=== PATIENT | male | born 1935 | race Caucasian/White ===

== ENCOUNTER 2016-12-11 09:59 | Emergency (ER) | payer MEDICARE, OTHER ==
[2016-01-14 12:23] VITALS: BMI 28.0
[~2016-12-11 09:59] MED LIST: BACTROBAN CREAM15 GM TOPICAL; BAYER CHEWABLE81 MG PO; CARDIZEM CD240 MG PO; FERROUS SULFAT325 MG PO; FORADIL12 MCG INH; FUROSEMIDE40 MG PO; GEMFIBROZIL600 MG PO; GLIPIZIDE10 MG PO; HYDRALAZINE HCL25 MG PO; JANUVIA100 MG PO; KEFLEX500 MG PO; KEPPRA500 MG PO; KLOR-CON 1010 MEQ PO; MAG-OXIDE400 MG PO; SINEMET CR 50-1 EACH PO; SPIRIVA18 MCG INH; TRILIPIX45 MG PO; VENTOLIN HFA18 GM INH; ZEBETA5 MG PO; ZOCOR20 MG PO
[2016-12-11 10:54] LABS: BASOPHILS 0.3 % (0-2); EOSINOPHILS 1.8 % (0-7); HEMATOCRIT 43.4 % (42.0-54.0); HEMOGLOBIN 14.2 g/dL (13.5-17.5); IMMATURE GRANULOCYTES 0.2 % (0-5); LYMPHOCYTES 15.3 % (15-50); MCH 32.3 pg (26.0-34.0); MCHC 32.7 g/dL (31.0-37.0); MCV 98.9 fL (80.0-100.0); MEAN PLATELET VOLUME 10.1 fL (7.4-10.4); MONOCYTES 9.3 % (2-11); NEUTROPHILS 73.1 % (40-80); PLATELET COUNT 181 10x3/uL (130-400); RBC 4.39 10x6/uL (4.20-6.10); RDW 14.3 % (11.5-14.5); WBC 9.4 10x3/uL (4.8-10.8)
[2016-12-11 11:05] LABS: ANION GAP 10.8 mmol/L (8-16); CALCIUM 9.2 mg/dL (8.5-10.1); CARBON DIOXIDE 31.4 mmol/L (21.0-32.0); CREATININE - SERUM 1.7 mg/dL (0.6-1.3); POTASSIUM - SERUM 4.2 mmol/L (3.5-5.1)
[2016-12-11 11:16] LABS: APTT 27.2 SECONDS (22.8-39.4); INR 0.97 (0.85-1.17); PROTIME 12.7 SECONDS (11.6-15.0)
[2016-12-11 11:17] LABS: D-DIMER-QUANTITATIVE 1.41 ug/mLFEU (0.20-0.54)
== END 2016-12-11 12:29 | disposition home or self-care (01) ==
LOC: D.ER 09:59
PROVIDERS: Emergency Medicine
DX: S60.465A Insect bite (nonvenomous) of left ring finger, initial encounter (principal); L08.9 Local infection of the skin and subcutaneous tissue, unspecified; W57.XXXA Bitten or stung by nonvenomous insect and other nonvenomous arthropods, initial encounter; Y93.89 Activity, other specified; Y92.89 Other specified places as the place of occurrence of the external cause; E11.9 Type 2 diabetes mellitus without complications; N18.9 Chronic kidney disease, unspecified; G20 Parkinson's disease; Z95.0 Presence of cardiac pacemaker; J44.9 Chronic obstructive pulmonary disease, unspecified; I50.9 Heart failure, unspecified

== ENCOUNTER 2017-07-02 08:01 | Inpatient (IN) | payer MEDICARE, OTHER ==
[~2017-07-02] VITALS: Ht 180.3 cm; Wt 83.2 kg
--- NOTE | ~2017-07-02 | OP ---
PATIENT NAME: GRAYSON AMOR MEDICAL RECORD: [id number] :33 LOCATION:[facility] D.[id number] ADMISSION DATE:07/02/17 SURGEON: LAITH STARKEY DO DATE OF OPERATION: 07/02/2017 DATE OF SURGERY: 07/02/2017 PROCEDURE PERFORMED: Left lindsay hip arthroplasty. PREOPERATIVE DIAGNOSIS: Left femoral neck fracture. POSTOPERATIVE DIAGNOSIS: Left femoral neck fracture. INDICATIONS: Mr. Amor is an 82-year-old male, who fell today onto his left side and could not ambulate afterwards. He had bruising over his left hip. X-rays taken that showed a femoral neck fracture. He had pain with hip log roll and we decided that lindsay hip would be the best for him as he has beginnings of Parkinson's. This was discussed with him and his family and he was consented for the procedure. SURGEON: Laith Starkey D.O. BLOOD LOSS: Approximately 100 mL. COMPLICATIONS: None. DESCRIPTION OF PROCEDURE: The patient was taken to the operative suite and laid in supine position, given general anesthetic and intubated. Once that was done, the boot was placed on the left lower extremity for the Medacta table and the patient was put over to the bed and then positioned with all bony prominences well padded. The left arm was brought over his chest and well padded. Once this was done, the left lower extremity was prepped and draped and a timeout was performed. Everyone was agreed to the correct side, site, and patient. The patient did receive a gram of Ancef preoperatively. After this was done, the incision we commenced just over the tensor fascia nesha and dissection was made down to the tensor fascia. Once the tensor fascia was divided, the fascia itself was taken anteriorly and the belly posteriorly and the Dilip Flores was used to do this. We then encountered the vessels of the ascending branch of the lateral femoral circumflex and the vessels were encountered and the Aquamantys was used on them to coagulate them and then they were tied off on either ends where we coagulated them and then they were divided. The hip femoral neck was then encountered. Hohmanns were placed around it and capsulotomy was performed and capsule was tagged and the Hohmanns were put inside the capsule around the femoral neck and the fracture was encountered at that time with some hematoma and the femoral neck cut was made distal to where the fracture was freshened up. Then, the head was removed as it felt it was not very sturdy. Head was removed and sized to be 51. After this was done, the femur was exposed with external rotation, extension, abduction and cookie cutter was used to lateralize a little and then the canal finder was used to find the canal started broaching up to a 4. We then took an x-ray and so we can go larger and a cookie cutter was used to get more lateral and we then went up to a 5. A #5 stem seemed to fit quite nicely. Then we trialled and found that the neck with the 51 head, standard offset was the best combination for the length of the hip. After this was done, the hip had been reduced and then pulled back out. We then put in a collared 5 stem and went down the collar right to the medial calcar region and then the OPERATIVE REPORT [id number] GRAYSON AMOR head was put on the bipolar head and the hip was reduced. X-rays were taken and seen to be in very good position. Then, the capsule was closed with a #2 Ethibond and the wound was thoroughly irrigated and then Janett was placed in the wound. The fascia over the tensor fascia nesha was then closed with 2 [id number] stitches and then a single running locking stitch was placed over the fascia with the same suture. Then, the rest of the Janett was unused. The skin was then closed with 2-0 Vicryl in an inverted interrupted fashion and then Prineo Dermabond glue was used on the skin, Adaptic, 4 x 4s and ABD were then placed over the hip and he was awakened and taken to recovery in stable condition. Blood loss approximately 150 mL. TRANSINT:[id number] Voice Confirmation ID: [id number] DOCUMENT ID: [id number] LAITH STARKEY DO at 0309 CC: [id number] DICTATION DATE: 07/02/172118 AIDS NURSE: 07/03/17 [address] [facility] [address] [place] [address]
[2017-07-02 09:22] LABS: BASOPHILS 0.1 % (0-2); EOSINOPHILS 0.3 % (0-7); HEMATOCRIT 39.2 % (42.0-54.0); HEMOGLOBIN 12.9 g/dL (13.5-17.5); IMMATURE GRANULOCYTES 0.3 % (0-5); LYMPHOCYTES 9.5 % (15-50); MCH 32.5 pg (26.0-34.0); MCHC 32.9 g/dL (31.0-37.0); MCV 98.7 fL (80.0-100.0); MEAN PLATELET VOLUME 10.2 fL (7.4-10.4); MONOCYTES 6.1 % (2-11); NEUTROPHILS 83.7 % (40-80); PLATELET COUNT 199 10x3/uL (130-400); RBC 3.97 10x6/uL (4.20-6.10); RDW 14.1 % (11.5-14.5); WBC 14.5 10x3/uL (4.8-10.8)
[2017-07-02 09:25] LABS: APTT 27.2 SECONDS (22.8-39.4); INR 1.07 (0.85-1.17); PROTIME 13.5 SECONDS (11.6-15.0)
[2017-07-02 09:31] LABS: ALBUMIN 4.1 g/dL (3.4-5.0); ANION GAP 16.8 mmol/L (8-16); BILIRUBIN - TOTAL 0.4 mg/dL (0.2-1.3); CARBON DIOXIDE 24.6 mmol/L (21.0-32.0); CREATININE - SERUM 2.4 mg/dL (0.6-1.3); POTASSIUM - SERUM 4.4 mmol/L (3.5-5.1); PROTEIN - SERUM 7.5 g/dL (6.4-8.2)
[2017-07-02 14:11] VITALS: BP 145/102; BMI 27.2
[2017-07-02 15:01] VITALS: BP 152/58
[2017-07-02 23:00] VITALS: BP 122/57
[2017-07-02 23:15] VITALS: BP 117/71
[2017-07-02 23:30] VITALS: BP 109/64
[2017-07-02 23:45] VITALS: BP 113/61
[2017-07-03] VITALS (16 sets, daily range): BP systolic 97–152; BP diastolic 51–92; Ht 180.3 cm; Wt 83.2 kg
[2017-07-03 04:09] LABS: BASOPHILS 1.5 % (0-2); EOSINOPHILS 1.5 % (0-7); HEMATOCRIT 32.5 % (42.0-54.0); HEMOGLOBIN 10.3 g/dL (13.5-17.5); IMMATURE GRANULOCYTES 0.1 % (0-5); LYMPHOCYTES 9.2 % (15-50); MCH 32.4 pg (26.0-34.0); MCHC 31.7 g/dL (31.0-37.0); MCV 102.2 fL (80.0-100.0); MEAN PLATELET VOLUME 10.7 fL (7.4-10.4); MONOCYTES 8.2 % (2-11); NEUTROPHILS 79.5 % (40-80); PLATELET COUNT 165 10x3/uL (130-400); RBC 3.18 10x6/uL (4.20-6.10); RDW 14.5 % (11.5-14.5); WBC 8.7 10x3/uL (4.8-10.8)
[2017-07-03 04:26] LABS: ALBUMIN 3.2 g/dL (3.4-5.0); BILIRUBIN - TOTAL 0.42 mg/dL (0.2-1.3); CALCIUM 8.2 mg/dL (8.5-10.1); CARBON DIOXIDE 28.9 mmol/L (21.0-32.0); CREATININE - SERUM 2.5 mg/dL (0.6-1.3); PROTEIN - SERUM 6.1 g/dL (6.4-8.2)
[2017-07-03 04:37] LABS: ANION GAP 10.9 mmol/L (8-16); POTASSIUM - SERUM 5.8 mmol/L (3.5-5.1)
[2017-07-04] VITALS (9 sets, daily range): BP systolic 98–152; BP diastolic 55–78
[2017-07-04 05:08] LABS: BASOPHILS 0.4 % (0-2); EOSINOPHILS 3.5 % (0-7); HEMATOCRIT 30.5 % (42.0-54.0); HEMOGLOBIN 9.6 g/dL (13.5-17.5); IMMATURE GRANULOCYTES 0.2 % (0-5); LYMPHOCYTES 24.4 % (15-50); MCHC 31.5 g/dL (31.0-37.0); MCV 101.7 fL (80.0-100.0); MEAN PLATELET VOLUME 10.4 fL (7.4-10.4); NEUTROPHILS 60.5 % (40-80); PLATELET COUNT 149 10x3/uL (130-400); RDW 14.5 % (11.5-14.5)
[2017-07-04 05:16] LABS: WBC 5.7 10x3/uL (4.8-10.8)
[2017-07-04 05:25] LABS: ALBUMIN 3.1 g/dL (3.4-5.0); ANION GAP 10.3 mmol/L (8-16); BILIRUBIN - TOTAL 0.3 mg/dL (0.2-1.3); CALCIUM 8.2 mg/dL (8.5-10.1); CARBON DIOXIDE 27.1 mmol/L (21.0-32.0); CREATININE - SERUM 2.3 mg/dL (0.6-1.3); PROTEIN - SERUM 6.2 g/dL (6.4-8.2)
[2017-07-04 05:36] LABS: POTASSIUM - SERUM 4.4 mmol/L (3.5-5.1)
[2017-07-05 03:00] VITALS: BP 182/82
[2017-07-05 04:10] LABS: BASOPHILS 0.2 % (0-2); EOSINOPHILS 6.5 % (0-7); HEMATOCRIT 28.5 % (42.0-54.0); HEMOGLOBIN 9.2 g/dL (13.5-17.5); IMMATURE GRANULOCYTES 0.2 % (0-5); LYMPHOCYTES 15.8 % (15-50); MCH 32.2 pg (26.0-34.0); MCHC 32.3 g/dL (31.0-37.0); MONOCYTES 12.6 % (2-11); NEUTROPHILS 64.7 % (40-80); PLATELET COUNT 150 10x3/uL (130-400); RBC 2.86 10x6/uL (4.20-6.10)
[2017-07-05 04:11] LABS: MCV 99.7 fL (80.0-100.0)
[2017-07-05 04:16] LABS: ANION GAP 12.2 mmol/L (8-16); BILIRUBIN - TOTAL 0.4 mg/dL (0.2-1.3); CALCIUM 8.5 mg/dL (8.5-10.1); CARBON DIOXIDE 27.7 mmol/L (21.0-32.0); POTASSIUM - SERUM 3.9 mmol/L (3.5-5.1); PROTEIN - SERUM 6.3 g/dL (6.4-8.2)
[2017-07-05 04:18] LABS: CREATININE - SERUM 1.7 mg/dL (0.6-1.3)
[2017-07-05 12:55] VITALS: BP 177/85
[2017-07-05] MEDS ORDERED: VENTOLIN HFA18 GM INH (15:09)
[2017-07-05] MEDS ORDERED: HYDRALAZINE HCL25 MG PO (15:11)
[2017-07-05] MEDS ORDERED: BACTROBAN CREAM15 GM TOPICAL (15:12)
== END 2017-07-05 14:36 | DRG 470 ==
LOC: D.ER 08:01 → D.ICU 12:38 → D.MS 12:38 → D.ICU 22:54
PROVIDERS: Emergency Medicine
PROC: 0SRS0JZ Replacement of Left Hip Joint, Femoral Surface with Synthetic Substitute, Open Approach (ICD-10-PCS; 2017-07-02)
PROC: 0T9B70Z Drainage of Bladder with Drainage Device, Via Natural or Artificial Opening (ICD-10-PCS; principal; 2017-07-03)
DX: S72.002A Fracture of unspecified part of neck of left femur, initial encounter for closed fracture (principal); I13.0 Hypertensive heart and chronic kidney disease with heart failure and stage 1 through stage 4 chronic kidney disease, or unspecified chronic kidney disease; S32.019A Unspecified fracture of first lumbar vertebra, initial encounter for closed fracture; D62 Acute posthemorrhagic anemia; W19.XXXA Unspecified fall, initial encounter; G20 Parkinson's disease; I48.2 Chronic atrial fibrillation; I25.10 Atherosclerotic heart disease of native coronary artery without angina pectoris; E11.65 Type 2 diabetes mellitus with hyperglycemia; E11.22 Type 2 diabetes mellitus with diabetic chronic kidney disease; N18.9 Chronic kidney disease, unspecified; I50.9 Heart failure, unspecified; G47.33 Obstructive sleep apnea (adult) (pediatric); Z95.0 Presence of cardiac pacemaker; Z95.1 Presence of aortocoronary bypass graft; Z86.73 Personal history of transient ischemic attack (TIA), and cerebral infarction without residual deficits; Z87.891 Personal history of nicotine dependence; E87.5 Hyperkalemia

== ENCOUNTER 2017-07-05 13:53 | Inpatient (IN) | payer MEDICARE, OTHER ==
[~2017-07-05] VITALS: Ht 180.3 cm; Wt 83.5 kg
--- NOTE | 2017-07-05 15:00 | NUR ---
RECIEVED IN ROOM/BED.LEFT HIP FX.INCISION WITH DRSG C/D/I.BRUISING NOTED TO OUTER LT THIGH.POS UP IN BED.AYDEN HOSE ON LLE.PILLOW PLACED BETWEEN LEGS DUE TO CROSSING LEGS OVER.CL IN REACH.BED ALARM ON.
[2017-07-05] MEDS ORDERED: VENTOLIN HFA18 GM INH (15:09)
[2017-07-05] MEDS ORDERED: HYDRALAZINE HCL25 MG PO (15:11)
[2017-07-05] MEDS ORDERED: BACTROBAN CREAM15 GM TOPICAL (15:12)
[2017-07-05 16:44] VITALS: BP 177/77; BMI 25.7
--- NOTE | 2017-07-05 17:44 | NUR ---
PT RESTING IN BED WITH EYES OPEN CALL LIGHT IN REACH NO PROBLEMS WILL MONITER
--- NOTE | 2017-07-05 19:30 | NUR ---
PATIENT ATTEMPTING OOB. REPOSITIONED HIM WITH ASSIST FROM ОЛЬГА JONES. RESET TAMAR BED ALARM AND INTERNAL BED ALARM. REMINDED HIM HE IS NOT TO ATTEMPT UP WITHOUT ASSIST. PATIENT IS ORIENTED TO SELF ONLY. SR UP X3 WITH WATER AND CALL LIGHT IN REACH. LANDRY CATH PATENT TO BSD BAG.
--- NOTE | 2017-07-05 20:15 | NUR ---
PATIENT IN BED. WAS PLACED ON BEDPAN TO HAVE A BM. TRACE BLACK UNFORMED BM NOTED ON PINK BEDPAD.
[2017-07-05 22:10] VITALS: BP 183/77
--- NOTE | 2017-07-05 22:10 | NUR ---
ASSESMENT AND HS MEDS COMPLETE. ONLY TRACE BM RESULTED FROM EARLIER STINT ON BEDPAN. PATIENT WAS AGAIN PLACED ON BEDPAN PER HIS REQUEST.
--- NOTE | 2017-07-05 23:50 | NUR ---
PATIENT REMAINS AWAKE IN BED, COVERS OFF ASKED HIM IF HE IS COLD AND HE DENIES IT.
--- NOTE | 2017-07-06 01:55 | NUR ---
PATIENT AWAKE, LYING IN BED WITH COVERS OFF. RE-SPREAD HIS COVERS WHEN HE ADMITTED HE IS COLD NOW. SAID, "I WISH AMERICANS COULD BE LIKE YOU." IN INFER THAT HE MEANS HE IS SATISFIED WITH MY CARE OPPOSED TO THAT HE THINKS I'M NOT A [place] CITIZEN. WHEN I ASKED HIM TO CLARIFY, HE COULD NOT EXPLAIN HIMSELF.
--- NOTE | 2017-07-06 04:35 | NUR ---
RESTING QUIETLY IN BED, EYES CLOSED. EMPTIED 2225ML CLEAR LIGHT YELLOW URINE FROM LANDRY CATHETER.
--- NOTE | 2017-07-06 06:30 | NUR ---
FSBS 88. GAVE PATIENT 4 OZS APPLE JUICE. RPT PRESENT CONDUCTING INITIAL P/T EVALUATION. CLEANSED AND CHANGED PATIENT FROM SMALL BLACK LIQUID BM INCONTINENCE BEFORE P/T CONTINUED PATIENT'S EVAL.
[2017-07-06 06:51] LABS: HEMOGLOBIN 9.3 g/dL (13.5-17.5); LYMPHOCYTES 23.1 % (15-50); MCH 32.7 pg (26.0-34.0); MCHC 34.4 g/dL (31.0-37.0); MEAN PLATELET VOLUME 9.4 fL (7.4-10.4); NEUTROPHILS 61.6 % (40-80); PLATELET COUNT 153 10x3/uL (130-400); RBC 2.84 10x6/uL (4.20-6.10); RDW 13.3 % (11.5-14.5); WBC 5.1 10x3/uL (4.8-10.8)
[2017-07-06 06:58] LABS: MCV 95.1 fL (80.0-100.0)
[2017-07-06 07:13] LABS: ANION GAP 15.7 mmol/L (8-16); CALCIUM 8.4 mg/dL (8.5-10.1); POTASSIUM - SERUM 3.7 mmol/L (3.5-5.1)
[2017-07-06 07:14] LABS: CREATININE - SERUM 1.2 mg/dL (0.6-1.3)
--- NOTE | 2017-07-06 08:00 | NUR ---
SITTING UP IN BED EATING BREAKFAST. IS CONFUSED BUT COOPERATIVE. BRUISES NOTED TO LEFT SIDE AND HIP. OCCLUSIVE DSG NOTED TO LEFT HIP AREA. PEDAL PULSES NOTED X2.
[2017-07-06 08:33] VITALS: BP 152/67
--- NOTE | 2017-07-06 14:18 | NUR ---
RESTING QUIETLY IN BED. FAMILY VISITED EARLIER AND PT INTERACTED WTIH THEM.
--- NOTE | 2017-07-06 19:16 | NUR ---
SHIFT REPORT COMPLETED FROM DAY SHIFT NURSE.
--- NOTE | 2017-07-06 20:50 | NUR ---
FAMILY MEMBERS TALK TO PT AT ROOM.
[2017-07-06 22:58] VITALS: BP 137/61
--- NOTE | 2017-07-06 23:35 | NUR ---
REST QUIETLY IN BED, BED LOW, CALL LIGHT IN REACH.
--- NOTE | 2017-07-07 02:44 | NUR ---
PT RESTING IN BED READING A BOOK. NO COMPLAINT VOICED.
--- NOTE | 2017-07-07 06:05 | NUR ---
PT RESTING IN BED WITH EYES OPEN. DENIES ANY NEEDS. TOLERATED AM MEDS WITHOUT DIFFICULTY.
[2017-07-07 08:42] VITALS: BP 111/48
[2017-07-07 10:08] VITALS: Ht 180.3 cm; Wt 83.5 kg
--- NOTE | 2017-07-07 14:09 | NUR ---
THIS AM PATIENT STATED HE WANTED TO . NOTIFIED CHARGE NURSE JUSTIN. SPOKE WITH PATIENT AND ASKED HIM IF HE WANTED TO . HE SAID YES. I ASKED HIM IF HE HAD A PLAN TO KILL HIMSELF AND HE SAID NO. ROVERTO SPOKE WITH HIS ADUGHTER AND SHE SAID THIS IS NOTHING NEW WITH HIM AND WAS NOT SUPRISED HE WAS SAYING THIS. AFTER TALKING WITH HIM HE STATES HE DOES NOT PLAN TO HARM HIMSELF. HE ALSO MAKE AN INAPPROPRIATE COMMENT OF A SEXUAL NATURE.I DID NOT REPLY TO THIS COMMENT AND INSTEAD JUST SAID- CALL US IF YOU NEED ANYTHING.
--- NOTE | 2017-07-07 14:45 | NUR ---
PATIENT PULLED HIS R ARM SALINE LOCK OUT. CATH WAS INTACT. NO BLEEDING NOTED.
--- NOTE | 2017-07-07 15:45 | NUR ---
DAUGHTER VISITING PATIENT. PATIENT SPEECH BECAME GARBLED. HAD PATIENT TRY TO SMILE, TOUCH NOSE, MEAL MILLER HANDS, REPEAT SENTENCE. HE COULD NOT DO ANY OF THESE OR FOLLOW COMMANDS. VS WERE BP 124/84 HR 68 O2 SAT. 97%. CALLED DR. EPSTEIN AND MESSAGE LEFT OF CHANGE IN PATIENT STATUS. CT OF HEAD ORDERED. BLOOD GLUCOSE WAS 40 WHEN CHECKED. GLUCAGON WAS GIVEN IN ER. SL PLACED IN R AC IN ER.
--- NOTE | 2017-07-07 17:39 | NUR ---
PT RETURNING TO REHAB. PT FSBS LOW. SPOKE WITH SIDRA HARTKNURLING MACHINE TENDER. WILL RECHECK FSBS Q2 UNTIL FSBS GREATER THAN 100 X2 THEN WILL CHECK Q4.
--- NOTE | 2017-07-07 17:42 | NUR ---
ER CALLED WITH ORDERS FROM DR HENAO TO RUN D5NS @75 UNTIL FSBS REMAINS ABOVE 100 X2.
--- NOTE | 2017-07-07 19:20 | NUR ---
BEDSIDE SHIFT REPORT COMPLETE. BLOOD SUGAR CURRENTLY 219. IVF D5 1/2NS CONTINUES @ 75ML/HR PER PUMP VIA LEFT AC S/L. WILL RECHECK FSBS IN 2 HRS.
[2017-07-07 21:35] VITALS: BP 119/48
--- NOTE | 2017-07-07 21:35 | NUR ---
ASSISTED PATIENT UP TO BR DUE TO STOOL INCONTINENCE IN BED. HAD A FURTHER LARGE FORMED, BLACK BM (PATIENT TAKING FESO4) ON COMMODE. CLEANSED AND CHANGED HIM AND APPLIED FRESH PULL-UP. CHANGED ALL LINENS AND RETURNED PATIENT TO BED. THEN COMPLETED ASSESSMENT AND HS MEDS. HELD HYDRALAZINE DUE TO LOW DBP OF 119/48. FSBS 130. DISCONTINUED IV D5 1/2NS. GAVE PATIENT SNACK OF 8 OZS 2% MILK AND 3 CHUCKIE CRAX SQUARES. WILL RECHECK FSBS @ 0200 ON Q4H SCHEDULE PER ORDER OF DR. HENAO. PATIENT DENIES NEEDS. REMAINS ORIENTED X1 ONLY.
--- NOTE | 2017-07-07 22:15 | NUR ---
REMAINS AWAKE IN BED. SAYS HE IS STILL WORKING ON HIS SNACK. HAS EATEN HIS GRAHAMS. A SMALL AMOUNT OF MILK REMAINS.
--- NOTE | 2017-07-08 | NUR ---
PATIENT AWAKE. DENIES NEEDS. REMAINS CONFUSED.
--- NOTE | 2017-07-08 02:11 | NUR ---
PT RESTING IN BED WIDE AWAKE. ALERT TO SELF, BUT CONFUSED TO TIME, PLACE AND SITUATION. VOICED COMPLAINT OF LEFT HIP PAIN, BUT COULD NOT TELL ME A PAIN LEVEL. MEDICATED WITH NORCO PER SEP. PT ASKING FOR HIS MOTHER AT THIS TIME. WILL MONITOR CLOSELY.
--- NOTE | 2017-07-08 03:51 | NUR ---
FSBS IS 60. PT GIVEN 12 OUNCES OF ORANGE JUICE WITH 8 PACKETS OF SUGAR IN IT.
--- NOTE | 2017-07-08 04:56 | NUR ---
FSBS IS 126 AT THIS TIME.
--- NOTE | 2017-07-08 06:14 | NUR ---
PT RESTING IN BED WITH EYES OPEN. NO NEEDS VOICED.
[2017-07-08 07:30] LABS: BASOPHILS 0.2 % (0-2); EOSINOPHILS 4.7 % (0-7); HEMATOCRIT 28.9 % (42.0-54.0); HEMOGLOBIN 9.1 g/dL (13.5-17.5); IMMATURE GRANULOCYTES 0.5 % (0-5); LYMPHOCYTES 20.3 % (15-50); MCH 31.5 pg (26.0-34.0); MCHC 31.5 g/dL (31.0-37.0); MEAN PLATELET VOLUME 9.3 fL (7.4-10.4); NEUTROPHILS 61.3 % (40-80); RBC 2.89 10x6/uL (4.20-6.10); RDW 14.4 % (11.5-14.5); WBC 6.6 10x3/uL (4.8-10.8)
[2017-07-08 07:33] LABS: PLATELET COUNT 216 10x3/uL (130-400)
[2017-07-08 07:45] LABS: ANION GAP 12.9 mmol/L (8-16); CALCIUM 8.7 mg/dL (8.5-10.1); CARBON DIOXIDE 27.9 mmol/L (21.0-32.0); CREATININE - SERUM 1.5 mg/dL (0.6-1.3); POTASSIUM - SERUM 3.8 mmol/L (3.5-5.1)
--- NOTE | 2017-07-08 08:00 | NUR ---
SHIFT ASSMT COMPLETED.PLEASANTLY CONFUSED.INCISION LEFT HIP OPEN TO AIR.LARGE AMT OF BRUISING NOTED.ALARM ON.CL IN REACH.
[2017-07-08 09:54] VITALS: BP 144/43
--- NOTE | 2017-07-08 12:00 | NUR ---
POS UP IN BED FOR LUNCH;ENCOURAGED TO EAT.REQUIRED FEEDING AT FIRST.FSBS 139.
--- NOTE | 2017-07-08 14:00 | NUR ---
FAMILY HERE TO SEE.WORRIED OVER COULD EVENTS BE HAPPENING THEY DID THE OTHER DAY.RE-EVALUATED.PT SLEEPING.EASILY TO WAKE UP BUT DOZES BACK OFF TO SLEEP.FSBS 125.BP 125/44;THIS AM WAS 144/43.PULSE 62.RESP EASY AND REGULAR.FC UNCLAMPED AND DRAINED 110ML.URINE CLEAL.FC RECLAMPED.
--- NOTE | 2017-07-08 16:00 | NUR ---
SLEEPING RESP EASY.BLADDER TRAINING.
--- NOTE | 2017-07-08 19:17 | NUR ---
RECIEVED UP IN BED WITH EYES OPEN AND FAMILY AT BEDSIDE. PLEASANT AND CONFUSED. ORIENTED TO PERSON ONLY. DENIES ANY NEEDS AT THIS TIME. NO C/O PAIN. HOB ELEVATED AND LFA SALINE LOCK. CHECKED FOR PATENCY. LARGE BRUISE TO LEFT ARM AND LEFT SIDE OF HEADLEFT HIP SURGICAL INCISION OPEN TO AIR. REPORTED PT PULLED DRESSING OFF HIMSELF. NO REDNESS OR SWELLING TO SITE. BLADDER TRAINING IN PROGRESS. CALL LIGHT AND OVERBED TABLE IN REACH.
[2017-07-08 21:42] VITALS: BP 140/57
--- NOTE | 2017-07-08 23:00 | NUR ---
RESTING IN BED WITH EYES CLOSED. NO S/S OF DISTRESS OBSERVED. CALL LIGHT IN REACH. CONT BLADDER TRTAINING.
--- NOTE | 2017-07-09 03:21 | NUR ---
UP IN BED WITH EYES OPEN AND TV ON. EATING CHUCKIE CRACKERS AND MILK. PLEASANTLY CONFUSED. CONTINUE BLADDER TRAINING. IV TO LFA WITH DRESSING INTACT. CALL LIGHT AND OVERBED TABLE IN REACH.
--- NOTE | 2017-07-09 09:25 | NUR ---
FED BREAKFAST. EATS GOOD, BUT NEEDS CUEING AND ENCOURAGED TO EAT.(COULD FEED HIMSELF BUT FED HIM TO GET HIM TO EAT). WILL CONTINUE TO ENCOURAGE HIM TO EAT AND TO FEED HIMSELF.
[2017-07-09 10:30] VITALS: BP 154/59
--- NOTE | 2017-07-09 12:13 | NUR ---
Nutrition Follow Up: Pt was receiving pt care at the time of RD visit. Per nursing note pt is eating well but does require cueing and encouragement to eat. Pt is eating 50% meal avg on an ADA diet. +BM 07/07/17. Labs reviewed. Meds noted including Lasix. Rec continue current diet. RD following.
--- NOTE | 2017-07-09 15:24 | NUR ---
PATIENT ADMITTED TO REHAB FROM ACUTE FLOOR. DR. KIM IS PATIENT PCP, HE IS A CLIENT OF [facility] AT HOME. DME AT HOME: NEBULIZER, ROLLING WALKER AND A SHOWER CHAIR. WILL CONTINUE TO FOLLOW WITH PATIENT AND WILL ASSIST WITH DICHARGE NEEDS.
--- NOTE | 2017-07-09 17:27 | NUR ---
VOIDING WO DIFFICULTY SINCE LANDRY WAS REMOVED THIS AM. INCONT OF BOWEL AND BLADDER. ACCIDENT OF BM X1 ON CLOTHING AND LINENS. STAFF CHANGED LINENS AND BATHED PATIENT. ACCIDENT OF URINE X2 ON CLOTHING.
--- NOTE | 2017-07-09 19:36 | NUR ---
ASSESS VITAL SIGNS, SEE FLOWSHEET.
--- NOTE | 2017-07-09 19:45 | NUR ---
PT. IN BED WITH HOB UP SLIGHTLY AND IS WATCHING TV. CALL LIGHT WITHIN REACH.
--- NOTE | 2017-07-09 21:09 | NUR ---
BEDTIME SNACK, APPLE SAUCE GIVEN.
--- NOTE | 2017-07-09 23:02 | NUR ---
PT INCONTINENCE WITH BOWEL AND BLADDER, CLEAN PERINEAL AREA, APPLIED CALMOSEPTINE, CHANE LINEN AND GOWN.
[2017-07-10 01:10] VITALS: BP 139/56
--- NOTE | 2017-07-10 02:31 | NUR ---
REST QUIETLY IN BED, EYE CLOSE, CALL LIGHT IN REACH.
--- NOTE | 2017-07-10 04:05 | NUR ---
CHECK PT'S FSBS IS 106.
--- NOTE | 2017-07-10 05:52 | NUR ---
RESTING IN BED, CALL LIGHT IN REACH.
[2017-07-10 07:54] LABS: BASOPHILS 0.2 % (0-2); EOSINOPHILS 0.9 % (0-7); HEMATOCRIT 31.1 % (42.0-54.0); IMMATURE GRANULOCYTES 0.5 % (0-5); MCH 32.4 pg (26.0-34.0); MCHC 32.2 g/dL (31.0-37.0); MCV 100.6 fL (80.0-100.0); MEAN PLATELET VOLUME 9.1 fL (7.4-10.4); MONOCYTES 11.4 % (2-11); RBC 3.09 10x6/uL (4.20-6.10); RDW 14.8 % (11.5-14.5); WBC 5.6 10x3/uL (4.8-10.8)
[2017-07-10 07:55] LABS: PLATELET COUNT 261 10x3/uL (130-400)
[2017-07-10 08:08] LABS: ANION GAP 11.4 mmol/L (8-16); CALCIUM 9.2 mg/dL (8.5-10.1); CARBON DIOXIDE 32.5 mmol/L (21.0-32.0); CREATININE - SERUM 1.8 mg/dL (0.6-1.3); POTASSIUM - SERUM 3.9 mmol/L (3.5-5.1)
[2017-07-10 09:01] VITALS: BP 169/67
--- NOTE | 2017-07-10 16:55 | NUR ---
SLIGHTLY MORE ALERT THIS AFTERNOON. IS ANSERING YES/NO QUESTIONS THIS AFTERNOON. PATIENT HAS DECLINED SINCE ADMITTED TO UNIT. PREVIOUSLY HE WAS TALKING MORE AND INITIATED CONVERSATION. FUNCTIONALY, HE HAS BECOME A TOTAL WITH ADL'S AND IS INCONTINENT OF BOWEL AND BLADDER WITH ACCIDENTS OF BOTH AT TIMES. HE HAS TO BE FED UNLESS IT IS A SANDWICH OR SOMETHING HE CAN RESIDENTIAL MONITOR. REPORTED CHANGE OF STATUS TO CHARGE NURSE JUSTIN JONES AND SHE SHARED THIS INFORMATION AT TEAM CONFERENCE TODAY WITH DR. EPSTEIN AND STAFF.
[2017-07-10 19:00] VITALS: BP 162/64
--- NOTE | 2017-07-10 19:20 | NUR ---
PM ROUNDS MADE, PT RESTING WITH EYES CLOSED, RESP QUIET, NO DISTRESS NOTED, LEFT UNDISTURBED AT THIS TIME, BED IN LOW POSITION, SIDE RAILS X 3, CALL LIGHT IN REACH, BED ALARM ON AND WORKING PROPERLY
--- NOTE | 2017-07-10 20:01 | NUR ---
RESP IN ROOM FOR TREATMENT
--- NOTE | 2017-07-10 20:10 | NUR ---
RESP TO FIELD EDUCATION COORDINATOR, REPORTS PT VOMITED ALL OVER SELF, THIS RN TO ROOM, PT VOMITED LARGE AMOUNT OF DARK GREENISH BROWN EMESIST, SLIGHTLY CHUNKY, THIS RN AND TAE COYNE, ANTIQUE FURNITURE REPRODUCER CLEANED PT UP WITH WET WARM WIPES, BEDDING COMPLETELY CHANGED, PT PLACED IN A GOWN, ADULT BRIEF CHANGED, ROOM CLEANED UP
--- NOTE | 2017-07-10 20:31 | NUR ---
ASSESSMENT PER FLOW SHEET, PT CONFUSED, WHEN ASKED A QUESTIONS, PT JUST RESPONDS WITH "YES", FSBS OBTAINED, BED IN LOW POSITION, SIDE RAILS X 3, CALL LIGHT IN REACH, BED ALARM ON AND WORKING PROPERLY
--- NOTE | 2017-07-10 21:05 | NUR ---
SPOKE TO TOM PRINCE, RN, CHARGE NURSE, ASKED HIM ABOUT ADM 2100 MEDS SINCE PT VOMITED LARGE AMOUNT AND NOTHING ORDERED FOR NAUSEA/VOMITING, TOM PRINCE RN, CHARGE NURSE STATES TO "WAIT AWHILE AND SEE IF PT VOMITS ANYMORE AND THEN WE'LL SEE ABOUT ADM MEDS"
--- NOTE | 2017-07-10 21:33 | NUR ---
PT RESTING WITH EYES CLOSED, RESP QUIET, NO DISTRESS NOTED, LEFT UNDISTURBED AT THIS TIME, BED IN LOW POSITION, SIDE RAILS X 3, CALL LIGHT IN REACH, BED ALARM ON AND WORKING PROPERLY
--- NOTE | 2017-07-10 22:35 | NUR ---
PT AWAKE, PT UNABLE TO TELL ME HOW HE IS FEELING AT THIS TIME, WILL CONTINUE TO MONITOR A LITTLE LONGER BEFORE ADM MEDS
--- NOTE | 2017-07-10 23:38 | NUR ---
TOM PRINCE, RN, CHARGED NURSE REPORTS TO GO AHEAD AND ADM MEDS AND WILL SEE HOW PT TOLERATES AT THIS TIME, PT AWAKE, ADM 2100 MEDS PER MD ORDERS CRUSHED IN APPLESAUCE, SEE EMAR, PT WET, BLUE CHUX AND ADULT BRIEF CHANGED, CALMOSEPTINE APPLIED, WILL CONTINUE TO MONITOR, BED IN LOW POSITION, SIDE RAILS X 3, CALL LIGHT IN REACH, BED ALARM ON AND WORKING PROPERLY
--- NOTE | 2017-07-11 00:11 | NUR ---
FSBS 105, SPOKE TO TOM PRINCE RN, CHARGED NURSE ABOUT PT'S BS FROM 139 TO 105, STATES TO HAVE PT EAT SOME CHUCKIE CRACKERS AND DRINK APPLE JUICE, ASSISTED PT WITH HAND FEEDING CHUCKIE CRACKERS AND HOLDING CUP OF JUICE FOR PT, PT ATE 99% OF CHUCKIE CRACKERS, AND DRANK 100% OF APPLE JUICE, WILL CONTINUE TO MONITOR
--- NOTE | 2017-07-11 02:14 | NUR ---
PT AWAKE, WHEN ASKED ANY QUESTIONS, PT JUST SAYS "YES", BED IN LOW POSITION, SIDE RAILS X 3, CALL LIGHT IN REACH, BED ALARM ON AND WORKING PROPERLY
--- NOTE | 2017-07-11 04:36 | NUR ---
PT AWAKE, OBTAINED FSBS, PT WET, PT CLEANED UP WITH WET WARM WIPES, PINK PAD, BLUE CHUX AND ADULT BRIEF CHANGED, CALMOSEPTINE APPLIED, PT DENIES PAIN, BED IN LOW POSITION, SIDE RAILS X 3, CALL LIGHT IN REACH
--- NOTE | 2017-07-11 06:10 | NUR ---
UPON ENTERING ROOM, PT VOMITED LARGE AMOUNT OF DARK GREENISH BROWN/BLACK EMESIS, TOM PRINCE RN, CHARGE NURSE TO ROOM FOR EVALUATION, EMESIS HAD METALLIC SMELL, PT IS TAKING IRON SUPPLEMENT, THIS RN AND TAE COYNE LPN CLEANED PT UP WITH WET WARM WIPES AND WARM WASH CLOTHS, COMPLETE BEDDING CHANGED, CLEAN GOWN AND ADULT BRIEF APPLIED, POSITIONED PT TO RIGHT SIDE WITH PILLOW BEHIND BACK FOR COMFORT AND SUPPORT, BED IN LOW POSITION, SIDE RAILS X 2, CALL LIGHT IN REACH, BED ALARM ON AND WORKING PROPERLY
--- NOTE | 2017-07-11 06:54 | NUR ---
SHIFT REPORT TO DAY SHIFT
--- NOTE | 2017-07-11 07:21 | NUR ---
RESTING QUIETLY IN BED. CALL LIGHT IN REACH. BED IN LOWEST POSITION.
[2017-07-11 08:47] VITALS: BP 157/68
--- NOTE | 2017-07-11 08:53 | RHP ---
PATIENT: GRAYSON AARON MEDICAL RECORD: [id number] ACCOUNT: [id number] LOCATION:[facility]1113 : 33 ADMISSION DATE: 07/05/17 REHABILITATION HISTORY AND PHYSICAL EXAMINATION POST ADMISSION PHYSICIAN EXAMINATION POST-ADMISSION PHYSICAL EXAMINATION AND HISTORY AND PHYSICAL DATE OF ADMISSION: 07/05/2017 ADMITTING DIAGNOSIS: Left displaced femoral neck fracture. HISTORY OF PRESENT ILLNESS: The patient is an 82-year-old gentleman admitted to the inpatient rehab with a displaced left femoral neck fracture. He is status post left lindsay hip arthroscopy. His PCP is Dr. Roberto. He presented to the ED after a fall at home after getting out of bed on the day of admission. He reported he just blacked out, reported he did lose consciousness, but denied any other associated complaints prior to the fall such as palpitations, shortness of breath, chest pain, dizziness or anything else. He has a Life Alert, but does not wear it around his neck, so he laid on the floor until his daughter arrived. She normally comes by twice a day to give him his medications. His past medical history includes pacemaker placement and defibrillator, AFib, coronary artery disease, coronary artery bypass grafting, diabetes, hypertension, CHF, obstructive sleep apnea, skin cancer. Reportedly, he currently lives at home alone and was independent with ADLs prior to this incident. Postop, he was moved to the ICU secondary to slow response coming off anesthesia. He also has some hyperkalemia. His creatinine was stable. His H&H have been followed closely. He will require MD to follow him for his comorbidities listed above. He will also require intensive therapy in order to return to his home at his prior level of functioning. Comorbidities in this patient include acute blood loss anemia, syncope and collapse, fall at home, hematoma, leukocytosis, diabetes, chronic kidney disease, coronary artery bypass grafting, atrial fib, cardiac defibrillator, Parkinson's, hypertension and diabetes. PAST MEDICAL HISTORY: Significant for diabetes, hypertension, CHF, coronary artery disease, atherosclerotic heart disease, history of pneumonia, skin cancer, cataracts. PAST SURGICAL HISTORY: Includes cataract surgery, coronary artery bypass grafting and abdominal or femoral stents and now surgery on his hip. ALLERGIES: MORPHINE. MEDICATIONS: Current medications include Januvia 100 mg daily, glipizide 20 mg daily, diltiazem 240 mg daily, Zebeta 2.5 mg daily, aspirin chewable 81 mg daily, Tudorza 1 inhalation b.i.d., Brovana 15 mcg b.i.d., Zocor 20 mg at bedtime, potassium chloride ER 10 mEq b.i.d., Bactroban to apply topically b.i.d., Mag-Ox 400 mg b.i.d., Keppra 500 mg b.i.d., Apresoline 25 mg b.i.d., Lopid 600 mg b.i.d. prior to meals, Lasix 40 mg b.i.d., ferrous sulfate 325 mg b.i.d., TriCor 48 mcg at bedtime, Sinemet one tab t.i.d., Ventolin 2 puffs q.6 hours p.r.n., and MiraLax 17 g in 8 ounces of water daily. HABITS: No alcohol or tobacco use. FAMILY HISTORY: Noncontributory. HISTORY AND PHYSICAL [id number] GRAYSON AARON SOCIAL HISTORY: The patient hopes to return back home and get back to his prior level of functioning. REVIEW OF SYSTEMS: GENERAL: He denies weakness or fatigue. HEENT: He denies cold, cough, or congestion. CARDIOVASCULAR: Denies chest pain. PHYSICAL EXAMINATION: VITAL SIGNS: Stable, afebrile. GENERAL: Elderly gentleman in no acute distress, alert upon exam. HEENT: Normocephalic and atraumatic. Mucosa moist. NECK: Supple. No lymphadenopathy. LUNGS: Clear at this time. HEART: Irregular rate and rhythm. ABDOMEN: Benign. EXTREMITIES: No clubbing, cyanosis or edema. Postoperatively, the swelling appears normal. NEUROLOGIC: Somewhat consistent with Parkinson's. He does have a little bit of a tremor and slow mentation. LABORATORY DATA: White count is 5.1, H&H 9.3 and 27.0, platelet count was noted to be 153. Sodium 140, potassium 3.7, BUN and creatinine of 27 and 1.2, and blood sugar is noted to be 92. ASSESSMENT: This is an 82-year-old gentleman admitted to the rehab with a working diagnosis of left displaced femoral neck fracture. The patient has potential to make improvement. We instituted the following multidisciplinary therapies including to, but not limited to physical, occupational, respiratory, speech, nutritional services, prosthetics and orthotics. Given his complex condition and risk for more complications, rehabilitation services cannot be provided at a lower level of care such as a fpc facility. PLAN: 1. Admit to [facility] rehab for intensive inpatient therapy to include the following disciplines: A. Physical therapy to improve gait, all transfer skills and bed mobility to a modified independent level. B. Occupational therapy to improve activities of daily living to a modified independent level. C. Case management to assist with discharge planning and placement options. D. Nutrition to assist with nutritional needs. E. Rehabilitation nursing to assist in monitoring the patient's underlying medical conditions and to assist with any type of bowel or bladder management. 2. The patient's current medication and medical care will be continued. 3. The patient will be placed on standard fall precautions. 4. We will watch his pulse closely. He is a little tachycardic at this time, we will adjust his meds as necessary. 5. We will follow up this patient on Saturday a.m. and discuss with care team next week. TRANSINT:[id number] Voice Confirmation ID: [id number] DOCUMENT ID: [id number] HISTORY AND PHYSICAL [id number] GRAYSON AARON notes whether there has been none or any medical/functional change since admission: - No change since prescreen. HERMILA attests patient continues to be appropriate for IRF: - Continues to be appropriate. TERRA EPSTEIN MD at 0853 CC: [id number] DICTATION DATE: 07/06/17 1041 PROGRAM MGR: 07/06/17 1131 ADM IN [facility] [address] [place] [address]
--- NOTE | 2017-07-11 09:13 | NUR ---
DUE TO CHANGE IN MEDICAL CONDTION PATIENT DISCHARGED FROM REHAB AND ADMITTED TO ACUTE FLOOR.
--- NOTE | 2017-07-11 09:15 | NUR ---
PT IS RESPONDING YES TO EVERY QUESTIONS VS STABLE PT IN NO DISTRESS DR EPSTEIN HERE WRITING ORDERS FOR PT TO RETURN TO ACUTE CARE
--- NOTE | 2017-07-11 10:30 | NUR ---
DAUGHTER HERE NOTIFIED THAT HER DAD WOULD BE TRANSFERED
--- NOTE | 2017-07-11 10:59 | NUR ---
PT RESTING IN BED WITH EYES OPEN CALL LIGHT IN REACH NO PROBLEMS WILL MONITER
--- NOTE | 2017-07-11 13:30 | NUR ---
PT DISCHARGED TO ACUTE CARE REPORTED CALLED TO [facility] PT TOLERATED WELL
--- NOTE | 2017-08-22 14:37 | DS ---
PATIENT:GRAYSON AARON :31 MEDICAL RECORD: [id number] DISCHARGE SUMMARY ADMISSION DATE: 07/05/17 DISCHARGE DATE: 07/11/17 This is a discharge dated 07/11/2017 from inpatient rehabilitation. PRIMARY DIAGNOSIS: Decreased functional ability and ability to provide activities of daily living, status post left hip fracture with repair. SECONDARY DIAGNOSES: 1. Atrial fibrillation. 2. Coronary artery disease. 3. Diabetes. 4. Hypertension. 5. Congestive heart failure. 6. Obstructive sleep apnea. 7. Hypokalemia. 8. Hyperlipidemia. 9. Chronic kidney disease. 10. Parkinson disease. 11. Aspiration pneumonia. HOSPITAL COURSE: Full H&P is located elsewhere on the chart on this 82-year-old male who was admitted to inpatient rehab for physical therapy and occupational therapy to improve gait, transfer skills, bed mobility, and activities of daily living to a modified independent level. He was evaluated by PT and OT and their plans of care were followed. He required retirement care for observation and assessment, medication administration, as well as wound care and monitoring of surgical incision. He was continued on appropriate home medications. Fingerstick blood sugars were monitored throughout his hospital stay with changes in medications as needed. Electrolytes were managed by protocol. He was cooperative with therapies; however, he developed a significant change in mental status and was subsequently transferred to the acute hospital for higher level of care. DISCHARGE MEDICATIONS: As per discharge medication reconciliation. DISCHARGE DISPOSITION: The patient is discharged to the acute care hospital. He will continue his current diet and level of activity and will follow with primary care and specialists in the acute facility. At least 30 minutes was spent in this discharge activity. TRANSINT:[id number] Voice Confirmation ID: [id number] DOCUMENT ID: [id number] Dictated By: ARIADNA SARKAR I have interviewed/examined the above patient and agree with these documented findings. DISCHARGE SUMMARY REPORT [id number] GRAYSON AARON SCOTT MD at 1802 at 1437 CC: [id number] DICTATION DATE: 08/18/17 1503 BRAND AMBASSADOR PROMOTIONAL MODEL: 08/19/17 0157 DIS IN 07/11/17 [place] [id number] [place] [address]
== END 2017-07-11 13:52 | disposition short-term general hospital (02) | DRG 536 ==
LOC: D.REHAB 13:53
PROVIDERS: ADMIT Emergency Medicine
DX: S72.002A Fracture of unspecified part of neck of left femur, initial encounter for closed fracture (principal); D62 Acute posthemorrhagic anemia; I13.0 Hypertensive heart and chronic kidney disease with heart failure and stage 1 through stage 4 chronic kidney disease, or unspecified chronic kidney disease; W06.XXXA Fall from bed, initial encounter; R55 Syncope and collapse; Y92.009 Unspecified place in unspecified non-institutional (private) residence as the place of occurrence of the external cause; E11.22 Type 2 diabetes mellitus with diabetic chronic kidney disease; N18.9 Chronic kidney disease, unspecified; G20 Parkinson's disease; Z95.1 Presence of aortocoronary bypass graft; I48.91 Unspecified atrial fibrillation; D72.829 Elevated white blood cell count, unspecified; T14.8XXA Other injury of unspecified body region, initial encounter; R41.0 Disorientation, unspecified

== ENCOUNTER 2017-07-07 17:15 | Emergency (ER) | payer MEDICARE, OTHER ==
[2017-07-07 10:08] VITALS: BMI 25.6
== END 2017-07-07 18:00 ==
LOC: D.ER 17:15
DX: E11.649 Type 2 diabetes mellitus with hypoglycemia without coma (principal); I50.9 Heart failure, unspecified; N18.9 Chronic kidney disease, unspecified; J44.9 Chronic obstructive pulmonary disease, unspecified; E11.9 Type 2 diabetes mellitus without complications; Z95.0 Presence of cardiac pacemaker

== ENCOUNTER 2017-07-11 13:48 | Inpatient (IN) | payer MEDICARE, OTHER ==
[~2017-07-11] VITALS: Ht 180.3 cm; Wt 73.9 kg
--- NOTE | ~2017-07-11 | CN ---
PATIENT NAME:GRAYSON AMOR MEDICAL RECORD: [id number] : 31 LOCATION:D. D.2123 ADMIT DATE: 07/11/17 ACCOUNT: [id number] CONSULTING PHYSICIAN: MELIA REBOLLEDO MD REFERRING PHYSICIAN: DENNIS PETIT MD DATE OF CONSULTATION: 07/11/2017 Pulmonary Consultation CONSULT REQUESTING PHYSICIAN: Dennis Petit MD REASON FOR CONSULTATION: Aspiration pneumonia. HISTORY OF PRESENT ILLNESS: Mr. Amor is an 82-year-old gentleman who was admitted to rehab after a hip fracture. The patient is coughing. He has crackling and has coarse breath sound. Whenever the patient is eating, he has a cough. The patient was transferred upstairs with possible aspiration pneumonitis. REVIEW OF SYSTEMS: As in history of present illness. PAST MEDICAL HISTORY: 1. Diabetes mellitus. 2. Congestive heart failure. 3. Hypertension. 4. Coronary artery disease. 5. Arthrosclerotic heart disease. 6. History of pneumonia. 7. History of skin cancer. 8. Chronic kidney disease. PAST SURGICAL HISTORY: 1. He has had cataract surgery. 2. Coronary artery bypass surgery. 3. Abdominal femoral stenting. 4. Hip surgery. ALLERGIES: HE IS ALLERGIC TO MORPHINE. PRESENT MEDICATIONS: On [employer], was reviewed. PERSONAL AND SOCIAL HISTORY: The patient is a former smoker. He is a nondrinker. FAMILY HISTORY: Noncontributory. PHYSICAL EXAMINATION: GENERAL: Now, the patient is lying comfortably. He is not in acute distress. VITAL SIGNS: The blood pressure is 174/70, pulse is 108, respiration is 20, temperature 99.7, SpO2 is 91 on room air. HEENT: Conjunctivae pink, sclerae nonicteric. NECK: Supple, no JVD. CHEST: There are coarse breath sounds bilaterally. HEART: Rhythm regular, normal sound, no murmur. ABDOMEN: Soft, bowel sounds present. No hepatosplenomegaly. CONSULT REPORT [id number] GRAYSON AMOR RECTAL: Deferred. EXTREMITIES: No cyanosis, no clubbing, no pedal edema. SKIN: Warm. Normal turgor. CENTRAL NERVOUS SYSTEM: The patient is very slow and lethargic. LABORATORY DATA: CBC: WBC 7.9, hemoglobin 10.4, hematocrit 33.2, platelet count 275. Chemistry: Sodium 143, potassium 4.3, BUN is 53, creatinine 2.2. CHEST RADIOGRAPH: There is no infiltrate. Pacemaker is in place. IMPRESSION: 1. Dysphagia. 2. Possible aspiration pneumonitis. 3. Suspect chronic obstructive pulmonary disease exacerbation with a history of smoking. 4. Generalized debility. 5. Chronic kidney disease. 6. Coronary artery disease. RECOMMENDATION: 1. Add Zosyn IV. 2. Methylprednisolone IV. 3. Albuterol/ipratropium nebulizer. 4. Brovana and budesonide nebulizer. 5. Swallowing evaluation. Dr. Petit, thank you for involving me in the care of Mr. Amor. TRANSINT:[id number] Voice Confirmation ID: [id number] DOCUMENT ID: [id number] MELIA REBOLLEDO MD CC: DENNIS PETIT MD [id number] DICTATION DATE: 07/11/171637 MEDIA LAW FACULTY MEMBER: 07/11/17 1815 ADM IN [facility] [address] [place] [address]
[2017-07-11 14:40] LABS: BASOPHILS 0.1 % (0-2); EOSINOPHILS 0.1 % (0-7); HEMATOCRIT 33.2 % (42.0-54.0); HEMOGLOBIN 10.4 g/dL (13.5-17.5); IMMATURE GRANULOCYTES 0.4 % (0-5); LYMPHOCYTES 11.1 % (15-50); MCHC 31.3 g/dL (31.0-37.0); MCV 102.2 fL (80.0-100.0); MEAN PLATELET VOLUME 9.3 fL (7.4-10.4); MONOCYTES 9.6 % (2-11); NEUTROPHILS 78.7 % (40-80); PLATELET COUNT 275 10x3/uL (130-400); RBC 3.25 10x6/uL (4.20-6.10); RDW 14.9 % (11.5-14.5)
[2017-07-11 14:44] LABS: WBC 7.9 10x3/uL (4.8-10.8)
[2017-07-11 15:03] LABS: ANION GAP 13.3 mmol/L (8-16); CALCIUM 9.1 mg/dL (8.5-10.1); CREATININE - SERUM 2.2 mg/dL (0.6-1.3); POTASSIUM - SERUM 4.3 mmol/L (3.5-5.1)
[2017-07-11 15:11] VITALS: BP 174/70; BMI 27.6
[2017-07-11 20:06] VITALS: BP 129/55
[2017-07-12] VITALS: BP 120/50
[2017-07-12 01:36] LABS: APPEARANCE CLEAR (CLEAR); BILIRUBIN NEGATIVE (NEGATIVE); COLOR YELLOW (YELLOW); GLUCOSE NEGATIVE (NEGATIVE); KETONE NEGATIVE (NEGATIVE); NITRITE NEGATIVE (NEGATIVE); PROTEIN NEGATIVE (NEGATIVE); UROBILINOGEN NORMAL (NORMAL)
[2017-07-12 06:10] VITALS: BP 133/59
[2017-07-12 06:24] LABS: BASOPHILS 0.2 % (0-2); EOSINOPHILS 0 % (0-7); HEMATOCRIT 33.5 % (42.0-54.0); HEMOGLOBIN 10.3 g/dL (13.5-17.5); IMMATURE GRANULOCYTES 0.3 % (0-5); LYMPHOCYTES 10.4 % (15-50); MCH 31.8 pg (26.0-34.0); MCHC 30.7 g/dL (31.0-37.0); MCV 103.4 fL (80.0-100.0); MEAN PLATELET VOLUME 9.4 fL (7.4-10.4); MONOCYTES 4.3 % (2-11); NEUTROPHILS 84.8 % (40-80); PLATELET COUNT 322 10x3/uL (130-400); RBC 3.24 10x6/uL (4.20-6.10); RDW 14.9 % (11.5-14.5); WBC 6.6 10x3/uL (4.8-10.8)
[2017-07-12 06:49] LABS: ALBUMIN 3.1 g/dL (3.4-5.0); ANION GAP 15.1 mmol/L (8-16); BILIRUBIN - TOTAL 0.56 mg/dL (0.2-1.3); CARBON DIOXIDE 32.6 mmol/L (21.0-32.0); CREATININE - SERUM 2.3 mg/dL (0.6-1.3); POTASSIUM - SERUM 3.7 mmol/L (3.5-5.1); PROTEIN - SERUM 7.4 g/dL (6.4-8.2)
[2017-07-12 07:49] VITALS: BP 123/51
[2017-07-12 11:23] VITALS: BP 156/60
[2017-07-12 13:14] VITALS: Ht 180.3 cm; Wt 73.9 kg
[2017-07-12 16:45] VITALS: BP 144/59
[2017-07-12 20:45] VITALS: BP 134/52
[2017-07-13 00:30] VITALS: BP 127/67
[2017-07-13 07:16] LABS: BASOPHILS 0 % (0-2); EOSINOPHILS 0 % (0-7); HEMATOCRIT 28.9 % (42.0-54.0); HEMOGLOBIN 9.2 g/dL (13.5-17.5); IMMATURE GRANULOCYTES 0.6 % (0-5); LYMPHOCYTES 5.8 % (15-50); MCH 31.9 pg (26.0-34.0); MCHC 31.8 g/dL (31.0-37.0); MEAN PLATELET VOLUME 9.1 fL (7.4-10.4); MONOCYTES 3.7 % (2-11); NEUTROPHILS 89.9 % (40-80); PLATELET COUNT 282 10x3/uL (130-400); RBC 2.88 10x6/uL (4.20-6.10); RDW 14.3 % (11.5-14.5)
[2017-07-13 07:19] LABS: MCV 100.3 fL (80.0-100.0); WBC 9.9 10x3/uL (4.8-10.8)
[2017-07-13 07:40] LABS: ANION GAP 15.7 mmol/L (8-16); BILIRUBIN - TOTAL 0.67 mg/dL (0.2-1.3); CALCIUM 8.1 mg/dL (8.5-10.1); CARBON DIOXIDE 27.6 mmol/L (21.0-32.0); MAGNESIUM - SERUM 2.5 mg/dL (1.8-2.4); PHOSPHOROUS 3.8 mg/dL (2.5-4.9); POTASSIUM - SERUM 3.3 mmol/L (3.5-5.1); PROTEIN - SERUM 6.8 g/dL (6.4-8.2)
[2017-07-13 08:07] VITALS: BP 126/70
[2017-07-13 11:22] VITALS: BP 132/64
[2017-07-13 15:25] VITALS: BP 126/78
[2017-07-14] VITALS: BP 149/60
[2017-07-14 06:20] VITALS: BP 145/70
[2017-07-14 07:17] LABS: BASOPHILS 0 % (0-2); EOSINOPHILS 0 % (0-7); HEMATOCRIT 29.6 % (42.0-54.0); HEMOGLOBIN 9.5 g/dL (13.5-17.5); IMMATURE GRANULOCYTES 0.7 % (0-5); LYMPHOCYTES 6.2 % (15-50); MCH 31.8 pg (26.0-34.0); MCHC 32.1 g/dL (31.0-37.0); MEAN PLATELET VOLUME 9.5 fL (7.4-10.4); MONOCYTES 3.5 % (2-11); NEUTROPHILS 89.6 % (40-80); PLATELET COUNT 286 10x3/uL (130-400); RBC 2.99 10x6/uL (4.20-6.10); RDW 14.2 % (11.5-14.5)
[2017-07-14 07:40] LABS: ANION GAP 16.2 mmol/L (8-16); BILIRUBIN - TOTAL 0.63 mg/dL (0.2-1.3); CALCIUM 7.4 mg/dL (8.5-10.1); CARBON DIOXIDE 26.6 mmol/L (21.0-32.0); CREATININE - SERUM 1.7 mg/dL (0.6-1.3); PROTEIN - SERUM 6.4 g/dL (6.4-8.2)
[2017-07-14 07:41] LABS: POTASSIUM - SERUM 2.8 mmol/L (3.5-5.1)
[2017-07-14 08:12] VITALS: BP 137/65
[2017-07-14 11:30] VITALS: BP 123/68
[2017-07-14 15:40] VITALS: BP 126/71
[2017-07-14 21:52] VITALS: BP 98/59
[2017-07-15 06:57] LABS: BASOPHILS 0.1 % (0-2); EOSINOPHILS 0 % (0-7); HEMATOCRIT 32.5 % (42.0-54.0); HEMOGLOBIN 10.4 g/dL (13.5-17.5); IMMATURE GRANULOCYTES 1.9 % (0-5); LYMPHOCYTES 10.3 % (15-50); MCH 31.7 pg (26.0-34.0); MCV 99.1 fL (80.0-100.0); MEAN PLATELET VOLUME 9.6 fL (7.4-10.4); MONOCYTES 3.6 % (2-11); NEUTROPHILS 84.1 % (40-80); PLATELET COUNT 292 10x3/uL (130-400); RBC 3.28 10x6/uL (4.20-6.10); RDW 14.1 % (11.5-14.5)
[2017-07-15 07:07] LABS: ALBUMIN 3.2 g/dL (3.4-5.0); ANION GAP 15.7 mmol/L (8-16); BILIRUBIN - TOTAL 0.78 mg/dL (0.2-1.3); CALCIUM 7.7 mg/dL (8.5-10.1); CARBON DIOXIDE 27.9 mmol/L (21.0-32.0); CREATININE - SERUM 1.4 mg/dL (0.6-1.3); PROTEIN - SERUM 6.3 g/dL (6.4-8.2)
[2017-07-15 07:25] VITALS: BP 148/52
[2017-07-15 07:25] LABS: POTASSIUM - SERUM 3.6 mmol/L (3.5-5.1)
[2017-07-15 08:00] VITALS: BP 155/62
[2017-07-15 12:03] VITALS: BP 158/71
[2017-07-15 20:00] VITALS: BP 158/67
[2017-07-16 00:30] VITALS: BP 184/81
[2017-07-16 04:30] VITALS: BP 167/84
[2017-07-16 06:06] LABS: BASOPHILS 0.2 % (0-2); EOSINOPHILS 0 % (0-7); HEMATOCRIT 31.2 % (42.0-54.0); IMMATURE GRANULOCYTES 2.3 % (0-5); LYMPHOCYTES 10.7 % (15-50); MCH 31.9 pg (26.0-34.0); MCHC 32.1 g/dL (31.0-37.0); MCV 99.7 fL (80.0-100.0); MEAN PLATELET VOLUME 9.6 fL (7.4-10.4); MONOCYTES 6.3 % (2-11); NEUTROPHILS 80.5 % (40-80); PLATELET COUNT 302 10x3/uL (130-400); RBC 3.13 10x6/uL (4.20-6.10); RDW 14.2 % (11.5-14.5); WBC 6.2 10x3/uL (4.8-10.8)
[2017-07-16 06:41] LABS: ANION GAP 13.4 mmol/L (8-16); BILIRUBIN - TOTAL 0.67 mg/dL (0.2-1.3); CARBON DIOXIDE 29.6 mmol/L (21.0-32.0); CREATININE - SERUM 1.5 mg/dL (0.6-1.3); PROTEIN - SERUM 6.1 g/dL (6.4-8.2)
[2017-07-16 08:41] VITALS: BP 165/75
[2017-07-16 11:43] VITALS: BP 166/63
[2017-07-16 19:00] VITALS: BP 128/55
[2017-07-17 04:00] VITALS: BP 172/80
[2017-07-17 07:10] LABS: BASOPHILS 0.2 % (0-2); EOSINOPHILS 0.2 % (0-7); HEMATOCRIT 30.5 % (42.0-54.0); HEMOGLOBIN 9.7 g/dL (13.5-17.5); IMMATURE GRANULOCYTES 4.9 % (0-5); LYMPHOCYTES 16.4 % (15-50); MCH 31.7 pg (26.0-34.0); MCHC 31.8 g/dL (31.0-37.0); MCV 99.7 fL (80.0-100.0); MEAN PLATELET VOLUME 8.9 fL (7.4-10.4); MONOCYTES 6.8 % (2-11); NEUTROPHILS 71.5 % (40-80); PLATELET COUNT 265 10x3/uL (130-400); RBC 3.06 10x6/uL (4.20-6.10); RDW 14.5 % (11.5-14.5); WBC 5.1 10x3/uL (4.8-10.8)
[2017-07-17 07:30] LABS: ALBUMIN 2.9 g/dL (3.4-5.0); ANION GAP 11.4 mmol/L (8-16); BILIRUBIN - TOTAL 0.62 mg/dL (0.2-1.3); CARBON DIOXIDE 30.5 mmol/L (21.0-32.0); CREATININE - SERUM 1.3 mg/dL (0.6-1.3); POTASSIUM - SERUM 3.9 mmol/L (3.5-5.1); PROTEIN - SERUM 5.7 g/dL (6.4-8.2)
[2017-07-17 07:52] VITALS: BP 180/80
[2017-07-17 11:33] VITALS: BP 135/53
[2017-07-17 15:36] VITALS: BP 137/62
[2017-07-17 19:00] VITALS: BP 145/62
[2017-07-18 04:00] VITALS: BP 175/86
[2017-07-18 07:57] VITALS: BP 156/64
[2017-07-18 11:18] VITALS: BP 142/72
[2017-07-18 15:38] VITALS: BP 112/57
[2017-07-18 21:43] VITALS: BP 139/60
[2017-07-19 06:45] VITALS: BP 124/62
[2017-07-19 08:15] LABS: BASOPHILS 0.1 % (0-2); EOSINOPHILS 0.4 % (0-7); HEMATOCRIT 36.2 % (42.0-54.0); HEMOGLOBIN 11.5 g/dL (13.5-17.5); IMMATURE GRANULOCYTES 1.8 % (0-5); LYMPHOCYTES 17.3 % (15-50); MCH 32.1 pg (26.0-34.0); MCHC 31.8 g/dL (31.0-37.0); MCV 101.1 fL (80.0-100.0); MEAN PLATELET VOLUME 9.8 fL (7.4-10.4); NEUTROPHILS 74.4 % (40-80); RBC 3.58 10x6/uL (4.20-6.10); RDW 15.2 % (11.5-14.5); WBC 7.7 10x3/uL (4.8-10.8)
[2017-07-19 08:21] LABS: PLATELET COUNT 347 10x3/uL (130-400)
[2017-07-19 08:26] LABS: ALBUMIN 3.3 g/dL (3.4-5.0); ANION GAP 12.1 mmol/L (8-16); BILIRUBIN - TOTAL 0.6 mg/dL (0.2-1.3); CALCIUM 8.5 mg/dL (8.5-10.1); CARBON DIOXIDE 32.2 mmol/L (21.0-32.0); CREATININE - SERUM 1.5 mg/dL (0.6-1.3); POTASSIUM - SERUM 4.3 mmol/L (3.5-5.1); PROTEIN - SERUM 6.1 g/dL (6.4-8.2)
[2017-07-19 08:35] VITALS: BP 157/87
[2017-07-19 11:40] VITALS: BP 135/72
[2017-07-19] MEDS ORDERED: HUMALOG 30100 UNITS/ SC (15:04)
[2017-07-19 15:34] VITALS: BP 130/76
== END 2017-07-19 21:18 | DRG 178 ==
LOC: UNDOADMIN 13:48 → D.M2 13:48
PROVIDERS: Family Medicine; Internal Medicine Nephrology
DX: J69.0 Pneumonitis due to inhalation of food and vomit (principal); J44.1 Chronic obstructive pulmonary disease with (acute) exacerbation; J44.0 Chronic obstructive pulmonary disease with (acute) lower respiratory infection; I13.0 Hypertensive heart and chronic kidney disease with heart failure and stage 1 through stage 4 chronic kidney disease, or unspecified chronic kidney disease; N17.9 Acute kidney failure, unspecified; I25.10 Atherosclerotic heart disease of native coronary artery without angina pectoris; E11.21 Type 2 diabetes mellitus with diabetic nephropathy; J20.9 Acute bronchitis, unspecified; E11.65 Type 2 diabetes mellitus with hyperglycemia; E11.22 Type 2 diabetes mellitus with diabetic chronic kidney disease; N18.2 Chronic kidney disease, stage 2 (mild); I50.9 Heart failure, unspecified; G47.33 Obstructive sleep apnea (adult) (pediatric); F03.90 Unspecified dementia, unspecified severity, without behavioral disturbance, psychotic disturbance, mood disturbance, and anxiety; R33.9 Retention of urine, unspecified; I48.2 Chronic atrial fibrillation; Z86.73 Personal history of transient ischemic attack (TIA), and cerebral infarction without residual deficits; Z87.891 Personal history of nicotine dependence; Z95.1 Presence of aortocoronary bypass graft

== ENCOUNTER 2017-07-19 21:15 | Inpatient (IN) | payer MEDICARE, OTHER ==
[~2017-07-19] VITALS: Ht 180.3 cm; Wt 77.3 kg
--- NOTE | ~2017-07-19 | RHP ---
PATIENT: GRAYSON AARON MEDICAL RECORD: [id number] ACCOUNT: [id number] LOCATION:[facility] [id number] : 31 ADMISSION DATE: 07/19/17 REHABILITATION HISTORY AND PHYSICAL EXAMINATION POST ADMISSION PHYSICIAN EXAMINATION DATE OF ADMISSION: 07/19/2017. ADMITTING DIAGNOSIS: Acute exacerbation of chronic obstructive pulmonary disease. HISTORY OF PRESENT ILLNESS: The patient is an 82-year-old gentleman admitted to the inpatient rehab with acute exacerbation of COPD originally admitted on 07/05/2017 with a displaced femoral neck fracture status post left lindsay hip arthroplasty. His PCP is Dr. Roberto. He has got a past medical history significant for diabetes, hypertension, CHF, coronary artery disease, atherosclerotic heart disease, pneumonia, skin cancer, Parkinson, cataracts, and chronic kidney disease. After 6 days in rehab, he developed a bronchitic cough and minimal phlegm, was eating poorly and lethargic. For that reason, he was admitted back to acute setting for concerns for aspiration pneumonia. He was lethargic, but arousable, coarse breath sounds bilaterally. He had an O2 sat of 91% on room air. Pulmonary and speech therapy were consulted. Bedside swallow eval showed oropharyngeal dysphagia, dysarthria of speech, and communication defect. He was placed on a pureed diet with thickened liquids and speech therapy was started for swallowing, eating safety, aspiration precautions, and dietary upgrades. After treatment with IV steroid, antibiotics, and nebs he improved. He is currently ready and willing to return to rehab. Previously he lived alone, was moderately independent with ADLs and mobility. Currently, he is moderate to max assist for ADLs and mobility. He has a prolonged immobility, progressive generalized weakness, especially in his lower extremities affecting his tolerance to PT. He is very fatigued with limited flexion, extension of the lower extremities and proximal muscle strength that is decreased. He wants to be able to return home with his prior level of functioning or better if possible. COMORBIDITIES: Include diabetes, chronic AFib, COPD, pneumonitis, dysphagia, hypoxia, bronchitis, anemia, hypokalemia, obstructive sleep apnea, Parkinson's, TIA, dementia, coronary artery disease status post CABG, fatigue, weakness, lethargy, history of skin carcinoma. He is an ex-smoker. PAST MEDICAL HISTORY: Significant for diabetes, hypertension, CHF, coronary artery disease, atherosclerotic heart disease, history of pneumonia, skin cancer, cataracts, and chronic kidney disease. PAST SURGICAL HISTORY: Includes cataract surgery, coronary bypass grafting, abdominal and femoral stents since surgery on his hip. ALLERGIES: MORPHINE. CURRENT MEDICATIONS: His prednisone was stopped. I am going to go ahead and put him on a Medrol Dosepak to taper down. He is on Tudorza inhaler 1 actuation b.i.d. He is on Januvia 100 mg daily. He is on Zocor 20 mg q.h.s., potassium 10 mEq b.i.d., Bactroban ointment to apply b.i.d., Mag-Ox 400 mg b.i.d., Keppra 500 mg b.i.d. He is on a low resistant sliding scale of insulin. He is on Glucotrol 20 mg daily. He is on Lopid 600 mg b.i.d., furosemide 40 mg b.i.d., HISTORY AND PHYSICAL [id number] GRAYSON AARON Brovana 15 mcg b.i.d., ferrous sulfate 325 mg b.i.d., TriCor 48 mg q.h.s., diltiazem 240 mg daily, Zebeta 2.5 mg daily, aspirin chewable 81 mg daily, Ventolin 2 puffs q.6 hours p.r.n., and MiraLax 17 grams in 8 ounces of water daily. HABITS: No alcohol or tobacco use. FAMILY HISTORY: Noncontributory. SOCIAL HISTORY: The patient hopes to return home and get back to his prior level of functioning. REVIEW OF SYSTEMS: GENERAL: Does complain of weakness and fatigue. HEENT: Denies cold, cough, or congestion. CARDIOVASCULAR: Denies chest pain. PHYSICAL EXAMINATION: VITAL SIGNS: Stable, afebrile. GENERAL: An elderly gentleman in no acute distress, alert upon exam. HEENT: Normocephalic and atraumatic. Mucosa moist. NECK: Supple. No lymphadenopathy. LUNGS: Coarse breath sounds bilaterally. CARDIOVASCULAR: Irregular rate and rhythm. ABDOMEN: Benign. EXTREMITIES: No clubbing, cyanosis or edema. Postop swelling appears normal. NEUROLOGIC: He is consistent with Parkinson's. He has a flat affect, no obvious tremor at this time. LABORATORY DATA: His white count is 5.7, H&H of 10 and 32, and platelet count was noted to be 298. His MCV is 100.9. Sodium is 143, potassium 3.2, BUN and creatinine of 22 and 1.3, and blood sugar is noted to be 100. ASSESSMENT: This is an 82-year-old gentleman admitted to the rehab with a working diagnosis of acute exacerbation of COPD. The patient has potential to make improvement. We instituted the following multidisciplinary therapies including to, but not limited to physical, occupational, respiratory, speech, nutritional services, prosthetics and orthotics. Given his complex condition and risk for more complications, rehabilitation services cannot be provided at a low level of care such as nursing home facility. PLAN: 1. Admit to [facility] rehab for intensive inpatient therapy to include the following disciplines: A. Physical therapy to improve gait, all transfer skills and bed mobility to a modified independent level. B. Occupational therapy to improve activities of daily living to a modified independent level. C. Case management to assist with discharge planning and placement options. D. Nutrition to assist with nutritional needs. E. Rehabilitation nursing to assist in monitoring the patient's underlying medical conditions and to assist with any type of bowel or bladder management. 2. The patient's current medications and medical care will be continued. 3. The patient will be placed on standard fall precautions. 4. We will go ahead and place him back on some prednisone and taper him on this HISTORY AND PHYSICAL [id number] GRAYSON AARON instead of abruptly stopping it. 5. We will discuss this patient during care team staff meeting this week. TRANSINT:[id number] Voice Confirmation ID: [id number] DOCUMENT ID: [id number] HERMILA notes whether there has been none or any medical/functional change since admission: - No change since prescreen. HERMILA attests patient continues to be appropriate for IRF: - Continues to be appropriate. TERRA EPSTEIN MD at 1741 CC: [id number] DICTATION DATE: 07/20/17 1127 CHAIR SPRING ASSEMBLER: 07/20/17 1225 ADM IN [place] [id number] [place] [address]
[~2017-07-19 21:15] MED LIST changes: +HUMALOG 30100 UNITS/ SC
[2017-07-19 21:58] VITALS: BP 119/40; BMI 23.8
[2017-07-20 06:22] LABS: BASOPHILS 0.2 % (0-2); EOSINOPHILS 0.7 % (0-7); HEMATOCRIT 32.3 % (42.0-54.0); HEMOGLOBIN 10.4 g/dL (13.5-17.5); IMMATURE GRANULOCYTES 1.4 % (0-5); LYMPHOCYTES 15.1 % (15-50); MCH 32.5 pg (26.0-34.0); MCHC 32.2 g/dL (31.0-37.0); MCV 100.9 fL (80.0-100.0); MEAN PLATELET VOLUME 9.6 fL (7.4-10.4); MONOCYTES 6.8 % (2-11); NEUTROPHILS 75.8 % (40-80); PLATELET COUNT 298 10x3/uL (130-400); RDW 15.4 % (11.5-14.5)
[2017-07-20 06:26] LABS: WBC 5.7 10x3/uL (4.8-10.8)
[2017-07-20 06:32] LABS: ANION GAP 9.9 mmol/L (8-16); CALCIUM 8.1 mg/dL (8.5-10.1); CARBON DIOXIDE 31.3 mmol/L (21.0-32.0); CREATININE - SERUM 1.3 mg/dL (0.6-1.3); POTASSIUM - SERUM 3.2 mmol/L (3.5-5.1)
[2017-07-20 08:11] VITALS: BP 149/64
[2017-07-20 14:44] VITALS: Ht 180.3 cm; Wt 77.3 kg
[2017-07-20 22:40] VITALS: BP 140/62
[2017-07-21 08:16] VITALS: BP 138/52
[2017-07-21 19:53] VITALS: BP 124/55
[2017-07-22 07:06] LABS: BASOPHILS 0 % (0-2); EOSINOPHILS 0 % (0-7); HEMATOCRIT 34.1 % (42.0-54.0); HEMOGLOBIN 10.9 g/dL (13.5-17.5); IMMATURE GRANULOCYTES 0.7 % (0-5); LYMPHOCYTES 8.3 % (15-50); MCH 32.3 pg (26.0-34.0); MCV 101.2 fL (80.0-100.0); MONOCYTES 3.1 % (2-11); NEUTROPHILS 87.9 % (40-80); PLATELET COUNT 322 10x3/uL (130-400); RBC 3.37 10x6/uL (4.20-6.10); RDW 15.9 % (11.5-14.5); WBC 9.9 10x3/uL (4.8-10.8)
[2017-07-22 07:21] LABS: ANION GAP 13.6 mmol/L (8-16); CALCIUM 8.5 mg/dL (8.5-10.1); CARBON DIOXIDE 27.2 mmol/L (21.0-32.0); CREATININE - SERUM 1.6 mg/dL (0.6-1.3); POTASSIUM - SERUM 3.8 mmol/L (3.5-5.1)
[2017-07-22 08:00] VITALS: BP 123/65
[2017-07-22 20:00] VITALS: BP 154/58
[2017-07-23 08:00] VITALS: BP 138/65
[2017-07-23 20:00] VITALS: BP 141/58
[2017-07-24 08:12] VITALS: BP 114/57
[2017-07-24 19:30] VITALS: BP 119/59
[2017-07-25 08:00] VITALS: BP 137/66
[2017-07-25 21:56] VITALS: BP 101/50
[2017-07-26 06:51] LABS: BASOPHILS 0 % (0-2); EOSINOPHILS 0.2 % (0-7); HEMOGLOBIN 11.5 g/dL (13.5-17.5); IMMATURE GRANULOCYTES 1.3 % (0-5); LYMPHOCYTES 17.3 % (15-50); MCH 31.9 pg (26.0-34.0); MCHC 31.1 g/dL (31.0-37.0); MCV 102.5 fL (80.0-100.0); MEAN PLATELET VOLUME 9.8 fL (7.4-10.4); MONOCYTES 9.4 % (2-11); NEUTROPHILS 71.8 % (40-80); PLATELET COUNT 268 10x3/uL (130-400); RBC 3.61 10x6/uL (4.20-6.10); RDW 16.4 % (11.5-14.5); WBC 6.3 10x3/uL (4.8-10.8)
[2017-07-26 06:57] LABS: ANION GAP 13.5 mmol/L (8-16); CALCIUM 8.5 mg/dL (8.5-10.1); CARBON DIOXIDE 29.6 mmol/L (21.0-32.0); CREATININE - SERUM 1.9 mg/dL (0.6-1.3); POTASSIUM - SERUM 4.1 mmol/L (3.5-5.1)
[2017-07-26 08:00] VITALS: BP 121/58
[2017-07-26 22:00] VITALS: BP 121/47
[2017-07-27 08:51] VITALS: BP 118/54
[2017-07-27 19:45] VITALS: BP 121/49
[2017-07-28 07:30] VITALS: BP 127/58
[2017-07-28 22:59] VITALS: BP 126/50
[2017-07-29 07:39] VITALS: BP 109/52
[2017-07-29 14:24] LABS: ANION GAP 16.8 mmol/L (8-16); CALCIUM 8.6 mg/dL (8.5-10.1); CARBON DIOXIDE 27.5 mmol/L (21.0-32.0); CREATININE - SERUM 1.7 mg/dL (0.6-1.3)
[2017-07-29 14:25] LABS: POTASSIUM - SERUM 5.3 mmol/L (3.5-5.1)
[2017-07-29 16:40] LABS: BASOPHILS 0 % (0-2); EOSINOPHILS 1.2 % (0-7); HEMATOCRIT 36.4 % (42.0-54.0); HEMOGLOBIN 11.4 g/dL (13.5-17.5); IMMATURE GRANULOCYTES 0.5 % (0-5); LYMPHOCYTES 18.9 % (15-50); MCH 32.3 pg (26.0-34.0); MCHC 31.3 g/dL (31.0-37.0); MCV 103.1 fL (80.0-100.0); MONOCYTES 7.7 % (2-11); NEUTROPHILS 71.7 % (40-80); RBC 3.53 10x6/uL (4.20-6.10); RDW 16.2 % (11.5-14.5); WBC 6.5 10x3/uL (4.8-10.8)
[2017-07-29 16:41] LABS: PLATELET COUNT 198 10x3/uL (130-400)
[2017-07-29 20:48] VITALS: BP 130/54
[2017-07-30 08:41] VITALS: BP 103/44
[2017-07-30 21:00] VITALS: BP 100/54
[2017-07-31 07:05] LABS: ANION GAP 16.2 mmol/L (8-16); CALCIUM 8.7 mg/dL (8.5-10.1); CARBON DIOXIDE 25.7 mmol/L (21.0-32.0); CREATININE - SERUM 1.9 mg/dL (0.6-1.3)
[2017-07-31 07:06] LABS: POTASSIUM - SERUM 3.9 mmol/L (3.5-5.1)
[2017-07-31 07:32] LABS: BASOPHILS 0.2 % (0-2); EOSINOPHILS 1.6 % (0-7); HEMATOCRIT 28.6 % (42.0-54.0); HEMOGLOBIN 9.1 g/dL (13.5-17.5); IMMATURE GRANULOCYTES 0.5 % (0-5); LYMPHOCYTES 26.2 % (15-50); MCH 31.8 pg (26.0-34.0); MCHC 31.8 g/dL (31.0-37.0); MEAN PLATELET VOLUME 10.1 fL (7.4-10.4); MONOCYTES 9.2 % (2-11); NEUTROPHILS 62.3 % (40-80); PLATELET COUNT 183 10x3/uL (130-400); RBC 2.86 10x6/uL (4.20-6.10); RDW 15.7 % (11.5-14.5); WBC 5.7 10x3/uL (4.8-10.8)
[2017-07-31 07:41] VITALS: BP 102/40
[2017-07-31 20:00] VITALS: BP 109/42
[2017-08-01 08:18] VITALS: BP 110/55
[2017-08-01 20:00] VITALS: BP 144/54
[2017-08-02 08:02] VITALS: BP 126/57
[2017-08-02] MEDS ORDERED: NAMENDA5 MG PO (08:25)
[2017-08-02] MEDS ORDERED: GLIPIZIDE10 MG PO (08:26)
== END 2017-08-02 13:45 | DRG 190 ==
LOC: D.REHAB 21:15
PROVIDERS: Emergency Medicine
DX: J44.1 Chronic obstructive pulmonary disease with (acute) exacerbation (principal); J69.0 Pneumonitis due to inhalation of food and vomit; I13.0 Hypertensive heart and chronic kidney disease with heart failure and stage 1 through stage 4 chronic kidney disease, or unspecified chronic kidney disease; R45.851 Suicidal ideations; F01.51 Vascular dementia, unspecified severity, with behavioral disturbance; I48.2 Chronic atrial fibrillation; R09.02 Hypoxemia; R13.12 Dysphagia, oropharyngeal phase; J40 Bronchitis, not specified as acute or chronic; D64.9 Anemia, unspecified; E87.6 Hypokalemia; G47.33 Obstructive sleep apnea (adult) (pediatric); E11.22 Type 2 diabetes mellitus with diabetic chronic kidney disease; G20 Parkinson's disease; N18.9 Chronic kidney disease, unspecified; I25.10 Atherosclerotic heart disease of native coronary artery without angina pectoris; F03.90 Unspecified dementia, unspecified severity, without behavioral disturbance, psychotic disturbance, mood disturbance, and anxiety; R53.1 Weakness; R53.83 Other fatigue; Z87.891 Personal history of nicotine dependence; R41.0 Disorientation, unspecified; E11.21 Type 2 diabetes mellitus with diabetic nephropathy; E11.65 Type 2 diabetes mellitus with hyperglycemia

== ENCOUNTER 2017-08-05 06:46 | Emergency (ER) | payer MEDICARE, OTHER ==
[2017-07-20 14:44] VITALS: BMI 23.7
[~2017-08-05 06:46] MED LIST changes: +NAMENDA5 MG PO
== END 2017-08-05 09:28 | disposition home or self-care (01) ==
LOC: D.ER 06:46
DX: S00.03XA Contusion of scalp, initial encounter (principal); W06.XXXA Fall from bed, initial encounter; Y93.89 Activity, other specified; Y92.122 Bedroom in nursing home as the place of occurrence of the external cause; I50.9 Heart failure, unspecified; N18.9 Chronic kidney disease, unspecified; J44.9 Chronic obstructive pulmonary disease, unspecified; E11.9 Type 2 diabetes mellitus without complications; Z95.0 Presence of cardiac pacemaker

== ENCOUNTER 2017-09-19 03:50 | Emergency (ER) | payer MEDICARE, OTHER ==
[2017-07-20 14:44] VITALS: BMI 23.7
[2017-09-19 04:51] LABS: BASOPHILS 0.2 % (0-2); EOSINOPHILS 0.9 % (0-7); HEMATOCRIT 34.1 % (42.0-54.0); HEMOGLOBIN 10.6 g/dL (13.5-17.5); IMMATURE GRANULOCYTES 0.1 % (0-5); LYMPHOCYTES 10.1 % (15-50); MCH 29.9 pg (26.0-34.0); MCHC 31.1 g/dL (31.0-37.0); MCV 96.3 fL (80.0-100.0); MEAN PLATELET VOLUME 9.4 fL (7.4-10.4); MONOCYTES 8.5 % (2-11); NEUTROPHILS 80.2 % (40-80); RBC 3.54 10x6/uL (4.20-6.10); RDW 15.5 % (11.5-14.5); WBC 8.1 10x3/uL (4.8-10.8)
[2017-09-19 04:53] LABS: PLATELET COUNT 245 10x3/uL (130-400)
[2017-09-19 05:15] LABS: ALBUMIN 2.9 g/dL (3.4-5.0); ALKALINE PHOSPHATASE 81 U/L (46-116); ALT (SGPT) 10 U/L (10-68); BILIRUBIN - TOTAL 0.26 mg/dL (0.2-1.3); CALC OSMOLALITY 283 mosm/kg (275-300); CALCIUM 8.8 mg/dL (8.5-10.1); CARBON DIOXIDE 30.9 mmol/L (21.0-32.0); CHLORIDE - SERUM 102 mmol/L (98-107); CREATININE - SERUM 1.2 mg/dL (0.6-1.3); GLUCOSE 131 mg/dL (74-106); PROTEIN - SERUM 7.1 g/dL (6.4-8.2); SODIUM 141 mmol/L (136-145); UREA NITROGEN 16 mg/dL (7-18); eGFR NON AFRICAN AMERICAN 61 mL/min (90-120)
[2017-09-19 05:25] LABS: CREATINE KINASE 129 UL (21-232); MAGNESIUM - SERUM 1.7 mg/dL (1.8-2.4); PRO BNP 849 pg/mL (0-450); TROPONIN-I < 0.017 ng/mL (0.000-0.060)
== END 2017-09-19 07:16 | disposition home or self-care (01) ==
LOC: D.ER 03:50
PROVIDERS: Emergency Medicine
DX: R55 Syncope and collapse (principal); J44.9 Chronic obstructive pulmonary disease, unspecified; D64.9 Anemia, unspecified; E83.42 Hypomagnesemia; I50.9 Heart failure, unspecified; W19.XXXA Unspecified fall, initial encounter; Y93.89 Activity, other specified; Y92.012 Bathroom of single-family (private) house as the place of occurrence of the external cause; I12.9 Hypertensive chronic kidney disease with stage 1 through stage 4 chronic kidney disease, or unspecified chronic kidney disease; N18.9 Chronic kidney disease, unspecified; E11.9 Type 2 diabetes mellitus without complications; G20 Parkinson's disease; Z86.73 Personal history of transient ischemic attack (TIA), and cerebral infarction without residual deficits; R00.0 Tachycardia, unspecified

== ENCOUNTER 2017-11-21 05:28 | Inpatient (IN) | payer MEDICARE, OTHER ==
[~2017-11-21] VITALS: Ht 180.3 cm; Wt 90.7 kg
--- NOTE | ~2017-11-21 | EC ---
PATIENT:GRAYSON AARON DATE OF SERVICE: 11/21/17 SEX: M MEDICAL RECORD: [id number] DATE OF : 31 LOCATION:D.M2 D.210 AGE OF PATIENT: 82 ADMISSION DATE: 11/21/17 REFERRING PHYSICIAN: INTERPRETING PHYSICIAN: LISA BLAKELY MD ECHOCARDIOGRAM REPORT ECHO CHARGES 4 ECHO COMPLETE Date: 11/22 CLINICAL DIAGNOSIS: CHF ECHOCARDIOGRAPHIC MEASUREMENTS (adult normal given) AC root (d.<3.7cm) 4.1 cm LV Septum d (<1.2 cm> 1.5 cm Valve Excursion 1.5 cm LV Septum (systole) 1.8 cm Left Atria (s.<4.0cm> 3.8 cm LVPW d(<1.2cm) 1.6 cm RV (d.<2.3cm) 3.7 cm LVPW (sytole) 1.9 cm LV diastole(<5.6CM) 5.9 cm MV E-F(>70mm/sec) cm LV systole 4.5 cm LVOT Diameter 1.7 cm MV exc.(>10mm) 1.9 cm Est.ejection fraction (50-75%) % DOPPLER: LVIT cm/sec A 136 cm/sec E 89.0 cm/sec LA cm/sec RVSP 19 mmHg LVOT 97 cm/sec AOP1/2T m/s Asc. Ao 149 cm/sec RVOT 100 cm/sec RA cm/sec PA 138 cm/sec AV Gradient Peak 8.89 mmHg AV Mean 4.26 mmHg AV Area 1.5 cm MV Gradient Peak 10.54mmHg MV Mean 5.16 mmHg MV Area cm COMMENTS: Supercharge Repair Supervisor: Tamara MAYO Equipment Validation Engineer: 2 Dr. Hankins TAPE# PACS Pericardial Effusion N DATE OF SERVICE: 11/22/2017 FINDINGS: 1. Left ventricular chamber size is mildly dilated. Left ventricular systolic function is normal. Overall ejection fraction estimated at 60%. 2. Left atrium is within normal limits at 3.8 cm. Right atrium and right ventricular chamber sizes are mildly dilated. 3. Valvular structures have normal structure and motion. 4. Doppler interrogation reveals mild mitral regurgitation, trace tricuspid regurgitation. No other valvular insufficiency or stenosis. Pulmonary systolic ECHOCARDIOGRAM REPORT [id number] GRAYSON AARON pressure is estimated at 19 mmHg. 5. No evidence of pericardial effusion or left ventricular thrombus. TRANSINT:[id number] Voice Confirmation ID: [id number] DOCUMENT ID: [id number] LISA BLAKELY MD at 1849 CC: [id number] DICTATION DATE: 11/22/17 1306 ALTO SINGER: 11/22/17 1655 DIS IN 11/26/17 [place] [id number] [place] [id number]
[2017-11-21 06:43] LABS: BASOPHILS 0.2 % (0-2); EOSINOPHILS 5.5 % (0-7); HEMATOCRIT 36.6 % (42.0-54.0); HEMOGLOBIN 11.7 g/dL (13.5-17.5); LYMPHOCYTES 27.2 % (15-50); MCH 29.6 pg (26.0-34.0); MCV 92.7 fL (80.0-100.0); MEAN PLATELET VOLUME 9.8 fL (7.4-10.4); MONOCYTES 12.3 % (2-11); NEUTROPHILS 54.8 % (40-80); PLATELET COUNT 200 10x3/uL (130-400); RBC 3.95 10x6/uL (4.20-6.10); RDW 15.5 % (11.5-14.5); WBC 5.7 10x3/uL (4.8-10.8)
[2017-11-21 07:34] LABS: ALBUMIN 3.2 g/dL (3.4-5.0); ALKALINE PHOSPHATASE 89 U/L (46-116); ALT (SGPT) 5 U/L (10-68); CALC OSMOLALITY 286 mosm/kg (275-300); CALCIUM 8.8 mg/dL (8.5-10.1); CARBON DIOXIDE 26.3 mmol/L (21.0-32.0); CHLORIDE - SERUM 107 mmol/L (98-107); CREATININE - SERUM 1.4 mg/dL (0.6-1.3); GLUCOSE 108 mg/dL (74-106); POTASSIUM - SERUM 3.5 mmol/L (3.5-5.1); PROTEIN - SERUM 6.7 g/dL (6.4-8.2); SODIUM 143 mmol/L (136-145); UREA NITROGEN 14 mg/dL (7-18); eGFR NON AFRICAN AMERICAN 51 mL/min (90-120)
[2017-11-21 07:41] LABS: PRO BNP 691 pg/mL (0-450); TROPONIN-I < 0.017 ng/mL (0.000-0.060)
[2017-11-21 13:23] VITALS: BP 144/68; BMI 27.9
[2017-11-21] MEDS ORDERED: ARTANE2 MG PO (14:20)
[2017-11-21] MEDS ORDERED: IPRAT-ALBUT 0.5-3 ML UPD (14:21)
[2017-11-21] MEDS ORDERED: LISINOPRIL10 MG PO (14:22)
[2017-11-21] MEDS ORDERED: LEXAPRO10 MG PO (14:25)
[2017-11-21] MEDS ORDERED: VENTOLIN HFA18 GM INH (14:29)
[2017-11-21] MEDS ORDERED: IBUPROFEN200 MG PO (14:30)
[2017-11-21] MEDS ORDERED: SINEMET CR 50-1 EACH PO (14:37)
[2017-11-21] MEDS ORDERED: MIRALAX17 GM PO (14:41)
[2017-11-21 15:25] LABS: APPEARANCE HAZY (CLEAR); BILIRUBIN NEGATIVE (NEGATIVE); COLOR YELLOW (YELLOW); GLUCOSE NEGATIVE (NEGATIVE); KETONE NEGATIVE (NEGATIVE); NITRITE NEGATIVE (NEGATIVE); PROTEIN NEGATIVE (NEGATIVE); UROBILINOGEN NORMAL (NORMAL)
[2017-11-21 15:26] LABS: RED CELLS - URINE 0-5 /hpf (0-5)
[2017-11-21 15:27] LABS: BACTERIA FEW /hpf (NONE SEEN)
[2017-11-21 17:07] VITALS: BP 148/68
[2017-11-21 21:23] VITALS: BP 150/64
[2017-11-22 01:38] VITALS: BP 157/65
[2017-11-22 04:53] VITALS: BP 139/61
[2017-11-22 05:15] LABS: BASOPHILS 0 % (0-2); EOSINOPHILS 0 % (0-7); HEMATOCRIT 36.6 % (42.0-54.0); HEMOGLOBIN 11.5 g/dL (13.5-17.5); IMMATURE GRANULOCYTES 0.2 % (0-5); LYMPHOCYTES 9.9 % (15-50); MCH 29.3 pg (26.0-34.0); MCHC 31.4 g/dL (31.0-37.0); MCV 93.1 fL (80.0-100.0); MEAN PLATELET VOLUME 10.2 fL (7.4-10.4); MONOCYTES 2.9 % (2-11); PLATELET COUNT 237 10x3/uL (130-400); RBC 3.93 10x6/uL (4.20-6.10); RDW 15.3 % (11.5-14.5); WBC 6.6 10x3/uL (4.8-10.8)
[2017-11-22 05:29] LABS: ANION GAP 14.7 mmol/L (8-16); CALCIUM 9.1 mg/dL (8.5-10.1); CARBON DIOXIDE 26.9 mmol/L (21.0-32.0); CREATININE - SERUM 1.7 mg/dL (0.6-1.3); POTASSIUM - SERUM 3.6 mmol/L (3.5-5.1)
[2017-11-22 09:09] VITALS: BP 169/70
[2017-11-22 10:57] VITALS: Ht 180.3 cm; Wt 90.7 kg
[2017-11-22 11:53] VITALS: BP 154/68
[2017-11-22 16:50] VITALS: BP 130/59
[2017-11-22 22:57] VITALS: BP 139/55
[2017-11-23 05:20] LABS: BASOPHILS 0 % (0-2); EOSINOPHILS 0 % (0-7); HEMOGLOBIN 10.9 g/dL (13.5-17.5); IMMATURE GRANULOCYTES 0.2 % (0-5); LYMPHOCYTES 10.1 % (15-50); MCH 29.1 pg (26.0-34.0); MCHC 31.1 g/dL (31.0-37.0); MCV 93.6 fL (80.0-100.0); MEAN PLATELET VOLUME 9.9 fL (7.4-10.4); MONOCYTES 7.3 % (2-11); NEUTROPHILS 82.4 % (40-80); PLATELET COUNT 236 10x3/uL (130-400); RBC 3.74 10x6/uL (4.20-6.10); RDW 15.8 % (11.5-14.5)
[2017-11-23 05:25] LABS: WBC 9.1 10x3/uL (4.8-10.8)
[2017-11-23 05:41] LABS: ANION GAP 14.9 mmol/L (8-16); CARBON DIOXIDE 27.8 mmol/L (21.0-32.0); CREATININE - SERUM 1.8 mg/dL (0.6-1.3); POTASSIUM - SERUM 3.7 mmol/L (3.5-5.1)
[2017-11-23 05:58] VITALS: BP 126/86
[2017-11-23 08:33] VITALS: BP 150/72
[2017-11-23 11:58] VITALS: BP 150/65
[2017-11-23 16:44] VITALS: BP 154/79
[2017-11-23 21:57] VITALS: BP 183/57
[2017-11-24 06:31] LABS: BASOPHILS 0 % (0-2); EOSINOPHILS 0 % (0-7); HEMATOCRIT 38.6 % (42.0-54.0); HEMOGLOBIN 11.9 g/dL (13.5-17.5); IMMATURE GRANULOCYTES 0.4 % (0-5); LYMPHOCYTES 11.5 % (15-50); MCH 28.9 pg (26.0-34.0); MCHC 30.8 g/dL (31.0-37.0); MCV 93.7 fL (80.0-100.0); MEAN PLATELET VOLUME 10.1 fL (7.4-10.4); NEUTROPHILS 86.1 % (40-80); PLATELET COUNT 230 10x3/uL (130-400); RBC 4.12 10x6/uL (4.20-6.10); RDW 15.3 % (11.5-14.5)
[2017-11-24 06:32] LABS: WBC 4.6 10x3/uL (4.8-10.8)
[2017-11-24 06:39] LABS: ANION GAP 10.8 mmol/L (8-16); CALCIUM 8.6 mg/dL (8.5-10.1); CARBON DIOXIDE 29.4 mmol/L (21.0-32.0); CREATININE - SERUM 1.5 mg/dL (0.6-1.3); POTASSIUM - SERUM 4.2 mmol/L (3.5-5.1)
[2017-11-24 08:18] VITALS: BP 140/60
[2017-11-24] MEDS ORDERED: LEVAQUIN500 MG PO (09:26)
[2017-11-24 12:28] VITALS: BP 156/91
[2017-11-24 16:30] VITALS: BP 152/64
[2017-11-24 21:01] VITALS: BP 140/51
[2017-11-25 00:58] VITALS: BP 123/63
[2017-11-25 04:47] LABS: BASOPHILS 0 % (0-2); EOSINOPHILS 0 % (0-7); HEMATOCRIT 38.6 % (42.0-54.0); HEMOGLOBIN 12.3 g/dL (13.5-17.5); IMMATURE GRANULOCYTES 0.9 % (0-5); LYMPHOCYTES 13.4 % (15-50); MCH 29.6 pg (26.0-34.0); MCHC 31.9 g/dL (31.0-37.0); MCV 92.8 fL (80.0-100.0); MONOCYTES 7.6 % (2-11); NEUTROPHILS 78.1 % (40-80); PLATELET COUNT 213 10x3/uL (130-400); RBC 4.16 10x6/uL (4.20-6.10); RDW 15.3 % (11.5-14.5); WBC 5.7 10x3/uL (4.8-10.8)
[2017-11-25 05:07] LABS: ANION GAP 12.7 mmol/L (8-16); CALCIUM 8.6 mg/dL (8.5-10.1); CARBON DIOXIDE 29.1 mmol/L (21.0-32.0); CREATININE - SERUM 1.4 mg/dL (0.6-1.3); POTASSIUM - SERUM 3.8 mmol/L (3.5-5.1)
[2017-11-25 06:33] VITALS: BP 149/99
[2017-11-25 09:13] VITALS: BP 189/90
[2017-11-25 12:46] VITALS: BP 145/70
[2017-11-25 16:43] VITALS: BP 138/40
[2017-11-25 20:00] VITALS: BP 152/81
[2017-11-26] VITALS: BP 167/76
[2017-11-26 04:00] VITALS: BP 125/78
[2017-11-26 06:19] LABS: BASOPHILS 0.2 % (0-2); EOSINOPHILS 0 % (0-7); HEMATOCRIT 41.2 % (42.0-54.0); HEMOGLOBIN 12.8 g/dL (13.5-17.5); IMMATURE GRANULOCYTES 0.7 % (0-5); LYMPHOCYTES 16.6 % (15-50); MCH 29.2 pg (26.0-34.0); MCHC 31.1 g/dL (31.0-37.0); MCV 93.8 fL (80.0-100.0); MEAN PLATELET VOLUME 10.5 fL (7.4-10.4); MONOCYTES 7.5 % (2-11); PLATELET COUNT 233 10x3/uL (130-400); RBC 4.39 10x6/uL (4.20-6.10); RDW 15.1 % (11.5-14.5); WBC 5.5 10x3/uL (4.8-10.8)
[2017-11-26 06:44] LABS: ANION GAP 12.3 mmol/L (8-16); CALCIUM 8.8 mg/dL (8.5-10.1); CARBON DIOXIDE 29.9 mmol/L (21.0-32.0); CREATININE - SERUM 1.4 mg/dL (0.6-1.3); POTASSIUM - SERUM 4.2 mmol/L (3.5-5.1)
[2017-11-26 08:33] VITALS: BP 140/50
== END 2017-11-26 12:00 | DRG 291 ==
LOC: D.ER 05:28 → D.M2 09:51
PROVIDERS: Emergency Medicine; Internal Medicine Nephrology
DX: I13.0 Hypertensive heart and chronic kidney disease with heart failure and stage 1 through stage 4 chronic kidney disease, or unspecified chronic kidney disease (principal); J96.21 Acute and chronic respiratory failure with hypoxia; I50.23 Acute on chronic systolic (congestive) heart failure; J18.9 Pneumonia, unspecified organism; J44.1 Chronic obstructive pulmonary disease with (acute) exacerbation; N18.9 Chronic kidney disease, unspecified; E11.22 Type 2 diabetes mellitus with diabetic chronic kidney disease; E78.5 Hyperlipidemia, unspecified; I25.10 Atherosclerotic heart disease of native coronary artery without angina pectoris; G30.8 Other Alzheimer's disease; F02.80 Dementia in other diseases classified elsewhere, unspecified severity, without behavioral disturbance, psychotic disturbance, mood disturbance, and anxiety; N40.0 Benign prostatic hyperplasia without lower urinary tract symptoms; D64.9 Anemia, unspecified; Z95.1 Presence of aortocoronary bypass graft; Z87.891 Personal history of nicotine dependence; Z86.73 Personal history of transient ischemic attack (TIA), and cerebral infarction without residual deficits